=== PATIENT | female | born 1940 | race Caucasian/White ===

== ENCOUNTER 2018-01-08 09:48 | Observation (INO) ==
--- NOTE | 2018-01-08 10:15 | Emergency Department Note ---
Disposition Clinical Impression: COPD with acute exacerbation, Chest pain, rule out acute myocardial infarction Altered mental status, unspecified Qualifiers: Altered mental status type: unspecified Qualified Code(s): R41.82 - Altered mental status, unspecified Disposition: Admitted As Inpatient Condition: Fair Referrals: Gualberto Coto MD [Primary Care Provider] - Forms: ED Satisfaction Letter Time of Disposition: 11:49 General Adult HPI - General Chief complaint: ED Dizziness Stated complaint: Dizziness,Head injury,confusion x1wk Time Seen by Provider: 01/08/18 10:07 Source: patient, family Mode of arrival: wheelchair Limitations: altered mental status Nursing Notes Reviewed: Yes Vital Signs Reviewed: Yes - History of Present Illness HPI Narrative: 77-year-old female is sent from her primary care provider, Dr. Coto's office, for evaluation of multiple complaints. The patient was noted to be dyspneic in the office and she complaint of altered mental status, headache, shortness of breath, and chest pain. During her office visit primary care provider, according to records from that visit, she was noted to have some facial asymmetry however this is not well appreciated upon her arrival here. The patient states a history of multiple syncopal episodes over the course of the past 1-2 weeks. Her spouse was in the room states that the patient is extremely altered and that this altered mental status has been gradually worsening over the past 1-2 weeks. She herself is a rather poor historian but she does describe substernal nonradiating chest pain. She complains of a nonproductive cough and some mild degree of nausea as well. Onset (ago): week(s) Location: head, chest Pain Scale: 8 Consistency: constant Improves with: nothing Worsens with: nothing Associated symptoms: Reports: confusion, chest pain, cough, headaches, nausea/ vomiting (Nausea without vomiting), shortness of breath, syncope. Denies: diaphoresis, fever/chills Treatments Prior to Arrival: none - Related Data Home Medications Medication Instructions Recorded Confirmed Acyclovir [Zovirax] 400 mg PO BID 03/15/16 08/22/16 Albuterol Sulfate [Proair Hfa] 2 puff IH Q4H PRN 03/15/16 08/22/16 Alendronate Sodium [Fosamax] 70 mg PO MO 03/15/16 08/22/16 Atorvastatin Calcium [Lipitor] 20 mg PO HS 03/15/16 08/22/16 Budesonide/Formoterol 160/4.5 2 puff IH BIDR 03/15/16 08/22/16 [Symbicort 160/4.5] Cholecalciferol (Vitamin D3) 1,000 unit PO DAILY 03/15/16 08/22/16 [Vitamin D3] FLUoxetine HCl [Prozac] 40 mg PO HS 03/15/16 08/22/16 Ferrous Sulfate [Iron] 325 mg PO MOWEFR 03/15/16 08/22/16 Furosemide [Lasix] 40 mg PO DAILY 03/15/16 08/22/16 Gabapentin [Neurontin] 600 mg PO HS 03/15/16 08/22/16 HYDROcodone/Acet 5/325 mg [[place] 1 tab PO BID PRN 03/15/16 08/22/16 5-325 mg] Ipratropium/Albuterol Neb [Duoneb] 3 ml IH QID PRN 03/15/16 08/22/16 Montelukast [Singulair] 10 mg PO DAILY 03/15/16 08/22/16 Omalizumab [XOLAIR (For Outpatient 150 mg IJ QMONTH 03/15/16 08/22/16 Infusion)] Omeprazole [PriLOSEC] 40 mg PO DAILY 03/15/16 08/22/16 Oxygen 3 - 4 l NS AD 03/15/16 08/22/16 Ranitidine HCl [Heartburn Relief] 150 mg PO BID 03/15/16 08/22/16 diazePAM [Valium] 10 mg PO HS PRN 03/15/16 08/22/16 Previous Rx's Medication Instructions Recorded OxyCODONE Immed Rel [Roxicodone 5 5 mg PO Q4HR PRN #30 tablet 08/23/16 MG] Allergies Allergy/AdvReac Type Severity Reaction Status Date / Time ibandronate sodium Allergy Hives Verified 01/08/18 11:44 [From [place]] latex Allergy Hives Verified 01/08/18 11:44 Penicillins Allergy Anaphylaxis Verified 01/08/18 11:44 Sulfa (Sulfonamide Allergy Anaphylaxis Verified 01/08/18 11:44 Antibiotics) Tetanus Vaccines and Toxoid Allergy Hives Verified 01/08/18 11:44 [Tetanus Vaccines & Toxoid] tiotropium Allergy Hives Verified 01/08/18 11:44 [From Spiriva with HandiHaler] codeine AdvReac Confusion Verified 01/08/18 11:44 estradiol AdvReac unknown Verified 01/08/18 11:44 per patient morphine AdvReac Confusion Verified 01/08/18 11:44 All systems ED: reviewed and negative except as stated. Constitutional: Denies: fever, chills, weakness, weight change Eyes: Denies: eye pain, eye discharge, vision change ENT ED: Denies: ear pain, throat pain, dental pain, hearing loss, epistaxis, congestion, dysphagia Cardiovascular: Reports: as per HPI, chest pain, dyspnea on exertion, syncope. Denies: palpitations, edema Respiratory: Reports: as per HPI, cough, dyspnea, wheezes. Denies: hemoptysis, stridor, sputum production Gastrointestinal: Denies: abdominal pain, nausea, vomiting, diarrhea, constipation, hematemesis, melena, hematochezia Genitourinary: Denies: dysuria, frequency, hematuria, discharge Musculoskeletal: Denies: back pain, neck pain, arthralgia, myalgia Integumentary: Denies: rash, abrasion, lesions Neurological: Reports: as per HPI, headache. Denies: weakness, numbness, paresthesias, confusion, abnormal gait, vertigo Psychiatric: Denies: anxiety, depression, suicidal thoughts, homicidal thoughts , auditory hallucinations, visual hallucinations Endocrine: Denies: fatigue Hematological/Lymphatic: Denies: easy bleeding, easy bruising Allergic/Immunologic: Denies: facial swelling, urticaria Past Medical History - Past Medical History Attestation: Yes The following information was validated with the patient. Source: patient, obtained from family, nursing notes reviewed Medical history: Reports: arthritis, asthma, cancer, COPD, GERD, seizures Surgical history: Reports: appendectomy, cholecystectomy, colectomy, herniorrhaphy, hysterectomy, orthopedic, other, splenectomy, HAMMAD/BSO Psychiatric history: Reports: no psych history - Social History Smoking Status: Former smoker Smokeless Tobacco Status: No Alcohol use: Reports: none Drug use: Reports: none Physical Exam - General Limitations: no limitations General appearance: alert - Head Head exam: atraumatic, normocephalic, normal inspection - Expanded Head Exam Head exam physicial: Absent: laceration, abrasion, contusion, hematoma, raccoon eyes, Leblanc's sign - Eye Eye exam: Present: EOMI. Absent: PERRL (Right pupil appears fixed. Left pupil is sluggish. 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 Absent: tenderness - Chest Chest inspection: Present: normal inspection, symmetric chest wall rise - Respiratory Respiratory exam: Present: respiratory distress (Mild dyspnea noted), wheezes ( Audible expiratory wheezes). Absent: normal lung sounds bilaterally, stridor, accessory muscle use, prolonged expiratory phase - Cardiovascular Cardiovascular exam: Present: regular rate, tachycardia, normal heart sounds - Abdominal Exam Abdominal exam: Present: soft, Non-Tender, normal bowel sounds - Extremities Exam Extremities exam: Present: normal inspection, full ROM. Absent: tenderness, pedal edema - Back Exam Back exam: Present: normal inspection, full ROM. Absent: tenderness - Neurological Exam Neurological exam: Present: alert, oriented X3 (Oriented to person, place, and time) - Expanded Neurological Exam Patient oriented to: Present: person, place, time Cranial nerves: EOM function (II, III, IV, ): Normal, facial palsy (VII): Normal Motor strength - LUE: 5/5 Motor strength - RUE: 5/5 Motor strength - RLE: 5/5 Coma Scale Eye Opening: Spontaneous Coma Scale Motor Response: Obeys Commands Coma Scale Verbal Response: Oriented Coma Scale Total: 15 - Psychiatric Psychiatric exam: Present: normal affect, normal mood - Skin Skin exam: Present: warm, dry, intact, normal color. Absent: rash Course Course Narrative: I discussed this patient's case with Dr. Candelario. He agrees that the patient is outside any window for a stroke alert, as symptoms have been ongoing the gradually worsening for the past 1-2 weeks according to the patient's spouse. 1145: I discussed this patient's case with Dr. Sánchez, hospitalist on-call who has accepted the patient for admission to the hospitalist care for further evaluation and management. We will start IV azithromycin for acute exacerbation of COPD. Vital Signs Temperature 98.0 F 01/08/18 09:50 Pulse Rate 67 01/08/18 09:50 Respiratory Rate 24 01/08/18 09:50 Blood Pressure 145/70 01/08/18 09:50 O2 Sat by Pulse Oximetry 99 01/08/18 09:50 Temperature 98.0 F 01/08/18 10:16 Pulse Rate 67 01/08/18 10:16 Respiratory Rate 24 01/08/18 10:16 Blood Pressure 145/70 01/08/18 10:16 O2 Sat by Pulse Oximetry 100 01/08/18 10:20 Oxygen Delivery Oxygen Delivery Nasal Cannula Medical Decision Making - Medical Records Medical records reviewed: Yes I reviewed the patient's medical records. - Lab Data Lab results reviewed: Yes I reviewed the patient's lab results. Lab results narrative: Laboratory Last Values WBC 11.8 K/mcL (4.3-11.1) H 01/08/18 10:18 RBC 3.93 M/mcL (3.82-4.97) 01/08/18 10:18 Hgb 12.5 g/dL (11.5-15.4) 01/08/18 10:18 Hct 37.6 % (35.3-44.9) 01/08/18 10:18 MCV 95.7 fL (83.0-100.0) 01/08/18 10:18 MCH 31.8 pg (28.0-33.3) 01/08/18 10:18 MCHC 33.2 g/dL (31.6-35.5) 01/08/18 10:18 RDW 14.8 % (11.5-14.5) H 01/08/18 10:18 Plt Count 310 K/mcL (140-400) 01/08/18 10:18 MPV 9.1 fL (9.4-12.4) L 01/08/18 10:18 Immature Gran % 0.2 % (0-4) 01/08/18 10:18 Seg Neutrophils % 49.2 % 01/08/18 10:18 Lymphocytes % 39.2 % 01/08/18 10:18 Monocytes % 10.2 % 01/08/18 10:18 Eosinophils % 0.8 % 01/08/18 10:18 Basophils % 0.4 % 01/08/18 10:18 Neutrophils # 5.8 K/mcL (1.6-8.9) 01/08/18 10:18 Lymphocytes # 4.6 K/mcL (0.6-4.6) 01/08/18 10:18 Monocytes # 1.2 K/mcL (0.0-1.3) 01/08/18 10:18 Eosinophils # 0.1 K/mcL (0.0-0.6) 01/08/18 10:18 Basophils # 0.1 K/mcL (0.0-0.2) 01/08/18 10:18 PT 9.1 Seconds (9.4-12.1) L 01/08/18 10:18 INR 0.9 01/08/18 10:18 APTT 28.0 Seconds (26.0-36.0) 01/08/18 10:18 Sodium 135 mEq/L (136-145) L 01/08/18 10:18 Potassium 3.6 mEq/L (3.5-5.1) 01/08/18 10:18 Chloride 92 mEq/L (98-107) L 01/08/18 10:18 Carbon Dioxide 35 mEq/L (23-29) H 01/08/18 10:18 BUN 21 mg/dL (8-23) 01/08/18 10:18 Creatinine 1.01 mg/dL (0.60-1.20) 01/08/18 10:18 Est GFR ( Amer) > 60 (> 60) 01/08/18 10:18 Est GFR (Non-Af Amer) 53 (> 60) L 01/08/18 10:18 BUN/Creatinine Ratio 21 (6-26) 01/08/18 10:18 Glucose 89 mg/dL (70-105) 01/08/18 10:18 Calculated Osmolality 282 (280-300) 01/08/18 10:18 Lactic Acid 0.7 mmol/L (0.5-2.2) 01/08/18 10:18 Calcium 9.6 mg/dL (8.6-10.3) 01/08/18 10:18 Troponin I < 0.03 ng/mL (< 0.04) 01/08/18 10:18 B-Natriuretic Peptide 97 pg/mL (Less than 100) 01/08/18 10:18 Urine Color Yellow (Yellow) 01/08/18 11:09 Urine Clarity Clear (Clear) 01/08/18 11:09 Urine pH 7.0 pH Units (5.0-8.0) 01/08/18 11:09 Ur Specific Tow 1.015 (1.010-1.025) 01/08/18 11:09 Urine Protein Negative mg/dL (Neg-Trace) 01/08/18 11:09 Urine Glucose (UA) Normal mg/dL (Normal) 01/08/18 11:09 Urine Ketones Negative mg/dL (Negative) 01/08/18 11:09 Urine Blood Negative (Negative) 01/08/18 11:09 Urine Nitrite Negative (Negative) 01/08/18 11:09 Urine Bilirubin Negative (Negative) 01/08/18 11:09 Urine Urobilinogen Normal mg/dL (Normal) 01/08/18 11:09 Ur Leukocyte Esterase Moderate (Negative) H 01/08/18 11:09 Urine Microscopic RBC 0-3 per hpf (0-3) 01/08/18 11:09 Urine Microscopic WBC 3-5 per hpf (0-3) H 01/08/18 11:09 Ur Squamous Epith Cells Moderate per lpf (None-Few) H 01/08/18 11:09 Urine Bacteria None Seen per hpf (None-Few) 01/08/18 11:09 Hyaline Casts None Seen per lpf (None-Few) 01/08/18 11:09 Ur Culture Indicated? YES (NO) A 01/08/18 11:09 Result diagrams: 01/08/18 10:18 01/08/18 10:18 Lab Results 01/08/18 01/08/18 01/08/18 Range/Units 10:18 10:18 10:18 WBC (4.3-11.1) K/mcL RBC (3.82-4.97) M/mcL Hgb (11.5-15.4) g/dL Hct (35.3-44.9) % MCV (83.0-100.0) fL MCH (28.0-33.3) pg MCHC (31.6-35.5) g/dL RDW (11.5-14.5) % Plt Count (140-400) K/mcL MPV (9.4-12.4) fL Immature Gran % (0-4) % Seg Neutrophils % % Lymphocytes % % Monocytes % % Eosinophils % % Basophils % % Neutrophils # (1.6-8.9) K/mcL Lymphocytes # (0.6-4.6) K/mcL Monocytes # (0.0-1.3) K/mcL Eosinophils # (0.0-0.6) K/mcL Basophils # (0.0-0.2) K/mcL PT 9.1 L (9.4-12.1) Seconds INR 0.9 APTT 28.0 (26.0-36.0) Seconds Sodium (136-145) mEq/L Potassium (3.5-5.1) mEq/L Chloride (98-107) mEq/L Carbon Dioxide (23-29) mEq/L BUN (8-23) mg/dL Creatinine (0.60-1.20) mg/dL Est GFR ( Amer) (> 60) Est GFR (Non-Af Amer) (> 60) BUN/Creatinine Ratio (6-26) Glucose (70-105) mg/dL Calculated Osmolality (280-300) Lactic Acid 0.7 (0.5-2.2) mmol/L Calcium (8.6-10.3) mg/dL Troponin I (< 0.04) ng/mL B-Natriuretic Peptide 97 (Less than 100) pg/mL Urine Color (Yellow) Urine Clarity (Clear) Urine pH (5.0-8.0) pH Units Ur Specific Tow (1.010-1.025) Urine Protein (Neg-Trace) mg/dL Urine Glucose (UA) (Normal) mg/dL Urine Ketones (Negative) mg/dL Urine Blood (Negative) Urine Nitrite (Negative) Urine Bilirubin (Negative) Urine Urobilinogen (Normal) mg/dL Ur Leukocyte Esterase (Negative) Urine Microscopic RBC (0-3) per hpf Urine Microscopic WBC (0-3) per hpf Ur Squamous Epith Cells (None-Few) per lpf Urine Bacteria (None-Few) per hpf Hyaline Casts (None-Few) per lpf Ur Culture Indicated? (NO) 01/08/18 01/08/18 01/08/18 Range/Units 10:18 10:18 11:09 WBC 11.8 H (4.3-11.1) K/mcL RBC 3.93 (3.82-4.97) M/mcL Hgb 12.5 (11.5-15.4) g/dL Hct 37.6 (35.3-44.9) % MCV 95.7 (83.0-100.0) fL MCH 31.8 (28.0-33.3) pg MCHC 33.2 (31.6-35.5) g/dL RDW 14.8 H (11.5-14.5) % Plt Count 310 (140-400) K/mcL MPV 9.1 L (9.4-12.4) fL Immature Gran % 0.2 (0-4) % Seg Neutrophils % 49.2 % Lymphocytes % 39.2 % Monocytes % 10.2 % Eosinophils % 0.8 % Basophils % 0.4 % Neutrophils # 5.8 (1.6-8.9) K/mcL Lymphocytes # 4.6 (0.6-4.6) K/mcL Monocytes # 1.2 (0.0-1.3) K/mcL Eosinophils # 0.1 (0.0-0.6) K/mcL Basophils # 0.1 (0.0-0.2) K/mcL PT (9.4-12.1) Seconds INR APTT (26.0-36.0) Seconds Sodium 135 L (136-145) mEq/L Potassium 3.6 (3.5-5.1) mEq/L Chloride 92 L (98-107) mEq/L Carbon Dioxide 35 H (23-29) mEq/L BUN 21 (8-23) mg/dL Creatinine 1.01 (0.60-1.20) mg/dL Est GFR ( Amer) > 60 (> 60) Est GFR (Non-Af Amer) 53 L (> 60) BUN/Creatinine Ratio 21 (6-26) Glucose 89 (70-105) mg/dL Calculated Osmolality 282 (280-300) Lactic Acid (0.5-2.2) mmol/L Calcium 9.6 (8.6-10.3) mg/dL Troponin I < 0.03 (< 0.04) ng/mL B-Natriuretic Peptide (Less than 100) pg/mL Urine Color Yellow (Yellow) Urine Clarity Clear (Clear) Urine pH 7.0 (5.0-8.0) pH Units Ur Specific Tow 1.015 (1.010-1.025) Urine Protein Negative (Neg-Trace) mg/dL Urine Glucose (UA) Normal (Normal) mg/dL Urine Ketones Negative (Negative) mg/dL Urine Blood Negative (Negative) Urine Nitrite Negative (Negative) Urine Bilirubin Negative (Negative) Urine Urobilinogen Normal (Normal) mg/dL Ur Leukocyte Esterase Moderate H (Negative) Urine Microscopic RBC 0-3 (0-3) per hpf Urine Microscopic WBC 3-5 H (0-3) per hpf Ur Squamous Epith Cells Moderate H (None-Few) per lpf Urine Bacteria None Seen (None-Few) per hpf Hyaline Casts None Seen (None-Few) per lpf Ur Culture Indicated? YES A (NO) - Radiology Data Radiology results reviewed: Yes I reviewed the patient's radiology results. Cervical Spine CT 01/08/18 10:08 IMPRESSION: No acute abnormality of the cervical spine. Multilevel degenerative changes and grade 1 spondylolisthesis likely relating to the degenerative changes, similar to prior exam 01/27/2015. Diffuse bone demineralization. D/ / 01/08/2018 11:07:05 Sonny Mendiola MD / Marjorie Maddox Interpreting Provider: Sonny Mendiola MD Chest X-Ray 01/08/18 10:08 IMPRESSION: No evidence for acute cardiopulmonary process. D/ / 01/08/2018 10:49:58 Sonny Mendiola MD / leslie Interpreting Provider: Sonny Mendiola MD Head CT 01/08/18 10:08 IMPRESSION: 1. No acute intracranial abnormality. 2. Mild global parenchymal volume loss. 3. Atherosclerosis. 4. Hyperdensity is now seen within the posterior chamber the right globe with a scleral band. Suggest correlation with prior ophthalmologic procedure/silicone injection. D/ / Roe Tello MD / Roe Tello MD Interpreting Provider: Roe Tello MD - EKG Data EKG #1 EKG attestation: Yes I reviewed and interpreted this EKG. EKG results narrative: EKG reviewed by Dr. Candelario as well. EKG shows a sinus rhythm at a rate of 66 bpm. IA interval 180, QRS duration 102, QT/QTc interval 415/49. No ectopy noted. No STEMI. No appreciable changes from an EKG dated from 06/27/16. NIH Stroke Scale - Level of Consciousness LOC: Alert - LOC Questions LOC Questions: Answers both correctly - LOC Commands LOC Commands: Performs both correctly - Best Gaze Best Gaze: Normal - Visual Visual: Bilateral hemianopia (blind) - Facial Palsy Facial Palsy: Normal - Motor Arms Motor Arm-Left: No drift for 10 seconds Motor Arm-Right: No drift for 10 seconds - Motor Legs Motor Leg-Left: No drift for 5 seconds Motor Leg-Right: Drift, does NOT hit bed - Limb Ataxia Limb Ataxia: Absent of affected limb too weak to perform exam - Sensory Sensory: Normal - Best Language Best Language: No aphasia - Dysarthria Dysarthria: Mild, slurs some words - Extinction and Inattention Extinction and Inattention: Normal - NIHSS Total Score NIHSS Total Score: 5
[2018-01-08 10:30] LABS: Basophils # 0.1 K/mcL (0.0-0.2); Basophils % 0.4 %; Eosinophils # 0.1 K/mcL (0.0-0.6); Eosinophils % 0.8 %; Hematocrit 37.6 % (35.3-44.9); Hemoglobin 12.5 g/dL (11.5-15.4); Immature Granulocytes % 0.2 % (0-4); Lymphocytes # 4.6 K/mcL (0.6-4.6); Lymphocytes % 39.2 %; Mean Corpuscular HGB Conc 33.2 g/dL (31.6-35.5); Mean Corpuscular Hemoglobin 31.8 pg (28.0-33.3); Mean Corpuscular Volume 95.7 fL (83.0-100.0); Mean Platelet Volume 9.1 fL (9.4-12.4); Monocytes # 1.2 K/mcL (0.0-1.3); Monocytes % 10.2 %; Neutrophils # 5.8 K/mcL (1.6-8.9); Platelet Count 310 K/mcL (140-400); Red Blood Count 3.93 M/mcL (3.82-4.97); Red Cell Distribution Width 14.8 % (11.5-14.5); Segmented Neutrophils % 49.2 %
[2018-01-08 10:37] LABS: INR 0.9; Prothrombin Time 9.1 Seconds (9.4-12.1)
[2018-01-08 10:57] LABS: Troponin I < 0.03 ng/mL (< 0.04)
[2018-01-08 10:58] LABS: BUN/Creatinine Ratio 21 (6-26); Blood Urea Nitrogen 21 mg/dL (8-23); Calcium 9.6 mg/dL (8.6-10.3); Carbon Dioxide 35 mEq/L (23-29); Chloride 92 mEq/L (98-107); Glucose 89 mg/dL (70-105); Osmolality,Calculated 282 (280-300); Potassium 3.6 mEq/L (3.5-5.1); Sodium 135 mEq/L (136-145); eGFR For African Americans > 60 (> 60); eGFR For Non-African Americans 53 (> 60)
[2018-01-08] MEDS ORDERED: methylPREDNISolone 125 MG/2 ML VIAL IVP STA (11:14)
[2018-01-08] MEDS ORDERED: Aspirin 81 MG TAB.CHEW PO ONE (11:14)
[2018-01-08] MEDS ORDERED: Albuterol 2.5 MG/3 ML NEBULIZER IH ONE (11:15)
[2018-01-08 11:20] LABS: Bilirubin,Urine Negative (Negative); Blood,Urine Negative (Negative); Clarity,Urine Clear (Clear); Color,Urine Yellow (Yellow); Glucose,Urine (UA) Normal (Normal); Ketones,Urine Negative (Negative); Leukocyte Esterase,Urine Moderate (Negative); Nitrite,Urine Negative (Negative); Protein,Urine Negative (Neg-Trace); Specific Gravity,Urine 1.015 (1.010-1.025); Urobilinogen,Urine Normal (Normal)
[2018-01-08 11:23] LABS: Bacteria,Urine None Seen per hpf (None-Few); Hyaline Casts,Urine None Seen per lpf (None-Few); RBC,Urine 0-3 per hpf (0-3); Squamous Epithelial Cell,Urine Moderate per lpf (None-Few)
[2018-01-08] MEDS ORDERED: Azithromycin 500 MG in D5% in Water 250 ML IVPB ONE (11:47)
--- NOTE | 2018-01-08 12:30 | Emergency Department Note ---
Disposition Clinical Impression: COPD with acute exacerbation, Chest pain, rule out acute myocardial infarction Altered mental status, unspecified Qualifiers: Altered mental status type: unspecified Qualified Code(s): R41.82 - Altered mental status, unspecified Disposition: Admitted As Inpatient Condition: Fair General Adult HPI - General Chief complaint: ED Dizziness Stated complaint: Dizziness,Head injury,confusion x1wk Time Seen by Provider: 01/08/18 10:07 Source: patient, family Mode of arrival: wheelchair Limitations: no limitations - History of Present Illness Location: head, chest Pain Scale: 8 Improves with: nothing Worsens with: nothing Associated symptoms: Reports: confusion, chest pain, cough, headaches, nausea/ vomiting (Nausea without vomiting), shortness of breath, syncope. Denies: diaphoresis, fever/chills Treatments Prior to Arrival: none - Related Data Home Medications Medication Instructions Recorded Confirmed Acyclovir [Zovirax] 400 mg PO BID 03/15/16 08/22/16 Albuterol Sulfate [Proair Hfa] 2 puff IH Q4H PRN 03/15/16 08/22/16 Alendronate Sodium [Fosamax] 70 mg PO MO 03/15/16 08/22/16 Atorvastatin Calcium [Lipitor] 20 mg PO HS 03/15/16 08/22/16 Budesonide/Formoterol 160/4.5 2 puff IH BIDR 03/15/16 08/22/16 [Symbicort 160/4.5] Cholecalciferol (Vitamin D3) 1,000 unit PO DAILY 03/15/16 08/22/16 [Vitamin D3] FLUoxetine HCl [Prozac] 40 mg PO HS 03/15/16 08/22/16 Ferrous Sulfate [Iron] 325 mg PO MOWEFR 03/15/16 08/22/16 Furosemide [Lasix] 40 mg PO DAILY 03/15/16 08/22/16 Gabapentin [Neurontin] 600 mg PO HS 03/15/16 08/22/16 HYDROcodone/Acet 5/325 mg [Horatio 1 tab PO BID PRN 03/15/16 08/22/16 5-325 mg] Ipratropium/Albuterol Neb [Duoneb] 3 ml IH QID PRN 03/15/16 08/22/16 Montelukast [Singulair] 10 mg PO DAILY 03/15/16 08/22/16 Omalizumab [XOLAIR (For Outpatient 150 mg IJ QMONTH 03/15/16 08/22/16 Infusion)] Omeprazole [PriLOSEC] 40 mg PO DAILY 03/15/16 08/22/16 Oxygen 3 - 4 l NS AD 03/15/16 08/22/16 Ranitidine HCl [Heartburn Relief] 150 mg PO BID 03/15/16 08/22/16 diazePAM [Valium] 10 mg PO HS PRN 03/15/16 08/22/16 Previous Rx's Medication Instructions Recorded OxyCODONE Immed Rel [Roxicodone 5 5 mg PO Q4HR PRN #30 tablet 08/23/16 MG] Allergies Allergy/AdvReac Type Severity Reaction Status Date / Time ibandronate sodium Allergy Hives Verified 01/08/18 11:44 [From Boniva] latex Allergy Hives Verified 01/08/18 11:44 Penicillins Allergy Anaphylaxis Verified 01/08/18 11:44 Sulfa (Sulfonamide Allergy Anaphylaxis Verified 01/08/18 11:44 Antibiotics) Tetanus Vaccines and Toxoid Allergy Hives Verified 01/08/18 11:44 [Tetanus Vaccines & Toxoid] tiotropium Allergy Hives Verified 01/08/18 11:44 [From Spiriva with HandiHaler] codeine AdvReac Confusion Verified 01/08/18 11:44 estradiol AdvReac unknown Verified 01/08/18 11:44 per patient morphine AdvReac Confusion Verified 01/08/18 11:44 Constitutional: Denies: fever, chills, weakness, weight change Eyes: Denies: eye pain, eye discharge, vision change ENT ED: Denies: ear pain, throat pain, dental pain, hearing loss, epistaxis, congestion, dysphagia Cardiovascular: Reports: as per HPI, chest pain, dyspnea on exertion, syncope. Denies: palpitations, edema Respiratory: Reports: as per HPI, cough, dyspnea, wheezes. Denies: hemoptysis, stridor, sputum production Gastrointestinal: Denies: abdominal pain, nausea, vomiting, diarrhea, constipation, hematemesis, melena, hematochezia Genitourinary: Denies: dysuria, frequency, hematuria, discharge Musculoskeletal: Denies: back pain, neck pain, arthralgia, myalgia Integumentary: Denies: rash, abrasion, lesions Neurological: Reports: as per HPI, headache. Denies: weakness, numbness, paresthesias, confusion, abnormal gait, vertigo Psychiatric: Denies: anxiety, depression, suicidal thoughts, homicidal thoughts , auditory hallucinations, visual hallucinations Endocrine: Denies: fatigue Hematological/Lymphatic: Denies: easy bleeding, easy bruising Allergic/Immunologic: Denies: facial swelling, urticaria Past Medical History - Past Medical History Medical history: Reports: arthritis, asthma, cancer, COPD, GERD, seizures Surgical history: Reports: appendectomy, cholecystectomy, colectomy, herniorrhaphy, hysterectomy, orthopedic, other, splenectomy, HAMMAD/BSO Psychiatric history: Reports: no psych history - Social History Smoking Status: Former smoker Smokeless Tobacco Status: No Alcohol use: Reports: none Drug use: Reports: none Physical Exam - General Limitations: no limitations General appearance: alert Course - Reevaluation(s) Reevaluation #1: Attestation note I examined this patient and my medical decision-making was reviewed with the emergency medicine resident. I agree with the documented findings, disposition and treatment plan as described except to the extent set forth below. Patient seen with JESSIKA Alicea, Please see a copy of his note for details of the H&P, ED evaluation, management and disposition. I have independently evaluated the patient and confirmed appropriate portions of the history and physical exam. Briefly: 37-year-old female comes in with increasing confusion after fall. Patient had CT which was negative screening labs which were negative patient will be admitted to the hospitalist for further evaluation. Patient be admitted for chest pain rule out ACS and altered mental status Time: 12:28 Vital Signs Temperature 98.0 F 01/08/18 09:50 Pulse Rate 67 01/08/18 09:50 Respiratory Rate 24 01/08/18 09:50 Blood Pressure 145/70 01/08/18 09:50 O2 Sat by Pulse Oximetry 99 01/08/18 09:50 Temperature 98.0 F 01/08/18 10:16 Pulse Rate 71 01/08/18 11:50 Respiratory Rate 18 01/08/18 11:50 Blood Pressure 135/91 01/08/18 11:50 O2 Sat by Pulse Oximetry 100 01/08/18 11:50 Oxygen Delivery Oxygen Delivery Nasal Cannula Medical Decision Making - Lab Data Result diagrams: 01/08/18 10:18 01/08/18 10:18 Lab Results 01/08/18 01/08/18 01/08/18 Range/Units 10:18 10:18 10:18 WBC (4.3-11.1) K/mcL RBC (3.82-4.97) M/mcL Hgb (11.5-15.4) g/dL Hct (35.3-44.9) % MCV (83.0-100.0) fL MCH (28.0-33.3) pg MCHC (31.6-35.5) g/dL RDW (11.5-14.5) % Plt Count (140-400) K/mcL MPV (9.4-12.4) fL Immature Gran % (0-4) % Seg Neutrophils % % Lymphocytes % % Monocytes % % Eosinophils % % Basophils % % Neutrophils # (1.6-8.9) K/mcL Lymphocytes # (0.6-4.6) K/mcL Monocytes # (0.0-1.3) K/mcL Eosinophils # (0.0-0.6) K/mcL Basophils # (0.0-0.2) K/mcL PT 9.1 L (9.4-12.1) Seconds INR 0.9 APTT 28.0 (26.0-36.0) Seconds Sodium (136-145) mEq/L Potassium (3.5-5.1) mEq/L Chloride (98-107) mEq/L Carbon Dioxide (23-29) mEq/L BUN (8-23) mg/dL Creatinine (0.60-1.20) mg/dL Est GFR ( Amer) (> 60) Est GFR (Non-Af Amer) (> 60) BUN/Creatinine Ratio (6-26) Glucose (70-105) mg/dL Calculated Osmolality (280-300) Lactic Acid 0.7 (0.5-2.2) mmol/L Calcium (8.6-10.3) mg/dL Troponin I (< 0.04) ng/mL B-Natriuretic Peptide 97 (Less than 100) pg/mL Urine Color (Yellow) Urine Clarity (Clear) Urine pH (5.0-8.0) pH Units Ur Specific [place] (1.010-1.025) Urine Protein (Neg-Trace) mg/dL Urine Glucose (UA) (Normal) mg/dL Urine Ketones (Negative) mg/dL Urine Blood (Negative) Urine Nitrite (Negative) Urine Bilirubin (Negative) Urine Urobilinogen (Normal) mg/dL Ur Leukocyte Esterase (Negative) Urine Microscopic RBC (0-3) per hpf Urine Microscopic WBC (0-3) per hpf Ur Squamous Epith Cells (None-Few) per lpf Urine Bacteria (None-Few) per hpf Hyaline Casts (None-Few) per lpf Ur Culture Indicated? (NO) 01/08/18 01/08/18 01/08/18 Range/Units 10:18 10:18 11:09 WBC 11.8 H (4.3-11.1) K/mcL RBC 3.93 (3.82-4.97) M/mcL Hgb 12.5 (11.5-15.4) g/dL Hct 37.6 (35.3-44.9) % MCV 95.7 (83.0-100.0) fL MCH 31.8 (28.0-33.3) pg MCHC 33.2 (31.6-35.5) g/dL RDW 14.8 H (11.5-14.5) % Plt Count 310 (140-400) K/mcL MPV 9.1 L (9.4-12.4) fL Immature Gran % 0.2 (0-4) % Seg Neutrophils % 49.2 % Lymphocytes % 39.2 % Monocytes % 10.2 % Eosinophils % 0.8 % Basophils % 0.4 % Neutrophils # 5.8 (1.6-8.9) K/mcL Lymphocytes # 4.6 (0.6-4.6) K/mcL Monocytes # 1.2 (0.0-1.3) K/mcL Eosinophils # 0.1 (0.0-0.6) K/mcL Basophils # 0.1 (0.0-0.2) K/mcL PT (9.4-12.1) Seconds INR APTT (26.0-36.0) Seconds Sodium 135 L (136-145) mEq/L Potassium 3.6 (3.5-5.1) mEq/L Chloride 92 L (98-107) mEq/L Carbon Dioxide 35 H (23-29) mEq/L BUN 21 (8-23) mg/dL Creatinine 1.01 (0.60-1.20) mg/dL Est GFR ( Amer) > 60 (> 60) Est GFR (Non-Af Amer) 53 L (> 60) BUN/Creatinine Ratio 21 (6-26) Glucose 89 (70-105) mg/dL Calculated Osmolality 282 (280-300) Lactic Acid (0.5-2.2) mmol/L Calcium 9.6 (8.6-10.3) mg/dL Troponin I < 0.03 (< 0.04) ng/mL B-Natriuretic Peptide (Less than 100) pg/mL Urine Color Yellow (Yellow) Urine Clarity Clear (Clear) Urine pH 7.0 (5.0-8.0) pH Units Ur Specific [place] 1.015 (1.010-1.025) Urine Protein Negative (Neg-Trace) mg/dL Urine Glucose (UA) Normal (Normal) mg/dL Urine Ketones Negative (Negative) mg/dL Urine Blood Negative (Negative) Urine Nitrite Negative (Negative) Urine Bilirubin Negative (Negative) Urine Urobilinogen Normal (Normal) mg/dL Ur Leukocyte Esterase Moderate H (Negative) Urine Microscopic RBC 0-3 (0-3) per hpf Urine Microscopic WBC 3-5 H (0-3) per hpf Ur Squamous Epith Cells Moderate H (None-Few) per lpf Urine Bacteria None Seen (None-Few) per hpf Hyaline Casts None Seen (None-Few) per lpf Ur Culture Indicated? YES A (NO)
[2018-01-08] MEDS ORDERED: Albuterol 2.5 MG/3 ML NEBULIZER IH PRN (12:58)
[2018-01-08] MEDS ORDERED: Acetaminophen 325 MG TABLET PO PRN (12:58)
[2018-01-08] MEDS ORDERED: Naloxone 0.4 MG/ML INJ IVP PRN (12:58)
[2018-01-08] MEDS ORDERED: *HR* EPINEPHrine 0.3 MG/0.3 ML (PEN) IM PRN (13:03)
--- NOTE | 2018-01-08 13:12 | Internal Med History&Physical ---
Date of Encounter: 01/08/18 Time of Encounter: 12:20 Internal Medicine - H&P: HPI Chief complaint: AMS; syncope; dyspnea Admitted From: Emergency Dept Plans for Post Hospital Care: Home History of present illness: Ms. Kasper is a 77 year old female who presents with about a 3 week history of syncope, falls, weakness, dizzy spells, coughing, wheezing, and altered mental status. Patient saw her PCP today who referred her to ER. Patient was seen and assessed in the ER and admitted to the hospitalist service. I saw patient in the ER and discussed PECHANGA with patient and her who was present at the bedside. confirms that 3 weeks prior, she was normal and ambulating well without difficulty. She had no prior difficulty with confusion , disorientation, and/or weakness or syncope. However, over the previous 2-3 weeks, she has been falling, weak, dizzy, forgetful, and even hallucinating and delusional at times. She just weaned off prednisone yesterday after a prolonged taper for her COPD. She has had some occasional difficulty urinating but no cailin dysuria or urinary urgency. She has had no fevers, chills, or night sweats. She has been coughing and wheezing more than normal lately. She also has required increased oxygen use over the last few weeks. She normally only wears oxygen at night, but she has been wearing it 24/7 lately. She denies and her denies any focal numbness, weakness, or deficits. She has had generalized weakness, difficulty ambulating, and falling. Past Med Surg Social Fam HX - Past Medical History Attestation: Yes The following information was validated with the patient. Source: patient, old records reviewed, obtained from family Medical history: arthritis, asthma, cancer, COPD, GERD, seizures Additional medical history: Skin cancer Psychiatric history: no psych history - Past Surgical History Surgical History: appendectomy, cholecystectomy, colectomy, herniorrhaphy, hysterectomy, orthopedic, other, splenectomy, HAMMAD/BSO Additional surgical history: R-SHOULDER REPLACED, L-SHOULDER BALL & LIGAMENTS, 1 /2 STOMACH & INTESTINES, REMOVED, HERNIA REPAIR, Bladder tuck - Social History Smoking Status: Former smoker Smokeless Tobacco Status: No Alcohol use: none Drug use: none Occupational status: retired Current living situation: Home, With Family Activity Level: Independent ambulation Recent Out of Country Travel Within the Last 8 Weeks: No - Family History Mother Living Status: Hx Family Cardiac Disorders: Yes Internal Medicine - H&P: Meds Acyclovir [Zovirax] 400 mg PO BID 03/15/16 [History] Albuterol Sulfate [Proair Hfa] 2 puff IH Q4H PRN 03/15/16 [History] Alendronate Sodium [Fosamax] 70 mg PO MO 03/15/16 [History] Atorvastatin Calcium [Lipitor] 20 mg PO HS 03/15/16 [History] Budesonide/Formoterol 160/4.5 [Symbicort 160/4.5] 2 puff IH BID 03/15/16 [ History] Cholecalciferol (Vitamin D3) [Vitamin D3] 1,000 unit PO DAILY 03/15/16 [History] FLUoxetine HCl [Prozac] 40 mg PO HS 03/15/16 [History] Ferrous Sulfate [Iron] 325 mg PO DAILY 03/15/16 [History] Furosemide [Lasix] 40 mg PO DAILY 03/15/16 [History] Gabapentin [Neurontin] 600 mg PO HS 03/15/16 [History] Ipratropium/Albuterol Neb [Duoneb] 3 ml IH QID PRN 03/15/16 [History] Montelukast [Singulair] 10 mg PO DAILY 03/15/16 [History] Omalizumab [XOLAIR (For Outpatient Infusion)] 150 mg IJ QMONTH 03/15/16 [History ] Omeprazole [PriLOSEC] 40 mg PO DAILY 03/15/16 [History] Oxygen 3 - 4 l NS AD 03/15/16 [History] Ranitidine HCl [Heartburn Relief] 150 mg PO BID 03/15/16 [History] Acetaminophen [Acetaminophen ER] 650 mg PO BID PRN 01/08/18 [History] EPINEPHrine [Epipen] 0.3 mg IJ ONCE PRN 01/08/18 [History] Losartan/HCTZ [Hyzaar 50-12.5 Tablet] 1 tab PO DAILY 01/08/18 [History] Multivit-Min/Iron/Folic/Lutein [Centrum Silver Women Tablet] 1 tab PO DAILY [History] traZODone [TraZODone] 50 mg PO HS 01/08/18 [History] 3 Allergy/AdvReac Type Severity Reaction Status Date / Time ibandronate sodium Allergy Hives Verified 01/08/18 12:31 [From Boniva] latex Allergy Hives Verified 01/08/18 12:31 Penicillins Allergy Anaphylaxis Verified 01/08/18 12:31 Sulfa (Sulfonamide Allergy Anaphylaxis Verified 01/08/18 12:31 Antibiotics) Tetanus Vaccines and Toxoid Allergy Hives Verified 01/08/18 12:31 [Tetanus Vaccines & Toxoid] tiotropium Allergy Hives Verified 01/08/18 12:31 [From Spiriva with HandiHaler] codeine AdvReac Confusion Verified 01/08/18 12:31 estradiol AdvReac unknown Verified 01/08/18 12:31 per patient morphine AdvReac Confusion Verified 01/08/18 12:31 - Constitutional Constitutional: fatigue, falls, malaise, weakness, no chills, no fever(s) - EENT Eyes: loss of vision (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 ), no blurry vision, no change in vision Ears: no ear pain Nose, mouth and throat: no nasal congestion, no sore throat - Cardiovascular Cardiovascular ROS IM: dyspnea, dyspnea on exertion, lightheadedness, syncope, no chest pain, no edema, no irregular heart rhythm - Respiratory Respiratory: cough, dyspnea, dyspnea on exertion, wheezing, chest congestion, no hemoptysis, no excessive phlegm production, no change in phlegm color - Gastrointestinal Gastrointestinal: no abdominal pain, no diarrhea, no hematemesis, no hematochezia, no melena, no nausea, no vomiting - Genitourinary Genitourinary: dysuria, no flank pain, no hematuria, no urinary frequency, no urinary urgency - Musculoskeletal Musculoskeletal ROS IM: no back pain - Integumentary Integumentary IM: no rash, no jaundice - Neurological Neurological ROS: behavioral changes, confusion, dizziness, frequent falls, tremor(s), no abnormal speech, no convulsions, no focal weakness, no headache(s) , no numbness, no vertigo - Psychiatric Psychiatric: anxiety, no depression - Endocrine Endocrine IM: no polydipsia, no polyuria - Allergic/Immunologic Allergic/Immunologic: wheezing, no GI upset with certain foods - Constitutional Vitals: Temp Pulse Resp BP Pulse Ox 98.0 F 71 18 135/91 100 01/08/18 10:16 01/08/18 11:50 01/08/18 11:50 01/08/18 11:50 01/08/18 11:50 General appearance: Present: cooperative, A&O X 3, pleasant, answers questions appropriately Exam: patient a little anxious; A&O x 3; acknowledges episodes of confusion and is distraught over them - Head Head exam: Present: atraumatic, normal inspection - Eye Eye exam: Present: EOMI. Absent: scleral icterus Pupils: Present: normal accommodation Additional comments: blind right eye - ENT ENT exam: Present: mucous membranes dry, normal exam, normal oropharynx - Neck Neck exam general surgery: Present: full ROM, supple. Absent: lymphadenopathy, tenderness, nuchal rigidity, thyromegaly - Expanded Neck Exam Neck exam: Absent: carotid bruit - Respiratory Respiratory exam: Present: prolonged expiratory phase, rhonchi, wheezes. Absent : accessory muscle use, chest wall tenderness, rales, respiratory distress - Cardiovascular Cardiovascular exam: Present: RRR, +S1, +S2. Absent: diastolic murmur, systolic murmur - GI/Abdominal GI/Abdominal exam: Present: soft. Absent: guarding, hepatomegaly, mass, rebound , splenomegaly, tenderness - Extremities Exam Extremities exam: Present: full ROM, normal capillary refill, warm, radial pulses palpable and symmetrical. Absent: calf tenderness, pedal edema, tenderness - Back Exam Back exam: Absent: CVA tenderness (L), CVA tenderness (R) - Neurological Exam Neurological exam: Present: alert, CN II-XII intact, oriented X3, no focal deficits Additional comments: tremors in both hands with intentional movements - Psychiatric Psychiatric exam: Present: anxious. Absent: depressed, homicidal ideation, suicidal ideation - Skin Skin exam: Present: dry, intact, warm Internal Med - H&P Results - Labs CBC & Chem 7: 01/08/18 10:18 01/08/18 10:18 - EKG Data -: EKG Interpreted by Myself - EKG Data Prior EKG available for review: yes EKG comments: 01/08/18 13:18 NSR; no acute ST-T changes - Diagnostic Studies Chest x-ray Status: image reviewed by me (negative) - Assessment and plan (1) Encephalopathy acute Current Visit: Yes Status: Acute Assessment and plan: 1. Possibly due to UTI vs abrupt steroid withdrawal (adrenal insufficiency). 2. Patient and deny any medication changes lately. 3. Will culture urine, treat for suspected UTI, and continue Solumedrol for AECOPD. 4. Will monitor glucose for possible hypoglycemia. 5. Will minimize sedating/mind-altering medications. 6. Follow clinically. (2) Syncope Current Visit: Yes Status: Acute Assessment and plan: 1. As above, will monitor glucose. 2. Will place on telemetry and trend troponins and EKg's. 3. Will order ECHO and Carotid Dopplers. 4. Given abrupt changes, will order MRI brain to assess for any neurologic process. Qualifiers: Syncope type: unspecified Qualified Code(s): R55 - Syncope and collapse (3) UTI (urinary tract infection) Current Visit: Yes Status: Suspected Assessment and plan: 1. Will culture urine and treat with IV antibiotics. 2. Follow clinically. Qualifiers: Urinary tract infection type: acute cystitis Hematuria presence: without hematuria Qualified Code(s): N30.00 - Acute cystitis without hematuria (4) COPD with acute exacerbation Current Visit: Yes Status: Acute Assessment and plan: 1. Will treat with IV steroids, scheduled and PRN aerosols, and IV Levaquin as above. 2. Follow clinically. 3. Recommend very slow steroid taper once clinically improved. (5) DVT prophylaxis Current Visit: Yes Status: Acute Assessment and plan: 1. Heparin SQ.
[2018-01-08] MEDS: 0.9 % Sodium Chloride 1,000 ML IVC SCH (14:33)
[2018-01-08] MEDS: Ipratropium/Albuterol Neb 3 ML IH SCH ×2 (15:46→20:11)
[2018-01-08] MEDS ORDERED: Famotidine 20 MG TABLET PO SCH (16:30)
--- NOTE | 2018-01-08 17:07 | Electrocardiograph Report ---
[facility] Test Date: 2018-01-08 Pat Name: Kate Kasper Department: 104 Room: 3B41 Gender: F Fig Washer: : 1940 Requested By: Ronny Alicea Order Number: [id number] Reading MD: Neil Curry Measurements Intervals [place] Rate: 66 P: 60 NV: 180 QRS: 26 QRSD: 102 T: 74 QT: 415 QTc: 429 Interpretive Statements SINUS RHYTHM NONSPECIFIC ST & T-WAVE ABNORMALITY Electronically Signed On 01-08-2018 17:06:24 EDT by Neil Curry
[2018-01-08] MEDS: methylPREDNISolone 125 MG/2 ML VIAL IVP SCH (18:06)
[2018-01-08] MEDS: *HR* Heparin 5,000 UNIT/ML VIAL SQ SCH (18:06)
[2018-01-08] MEDS: Budesonide/Formoterol 160/4.5 MDI IH SCH (20:12)
[2018-01-08] MEDS: FLUoxetine 20 MG CAPSULE PO SCH (20:35)
[2018-01-08] MEDS: Gabapentin 300 MG CAPSULE PO SCH (20:36)
[2018-01-08] MEDS: Acyclovir 200 MG CAPSULE PO SCH (20:37)
[2018-01-08] MEDS ORDERED: Levofloxacin 500 MG/100 ML 500 MG/100 ML BAG IVPB SCH (21:00)
[2018-01-09] MEDS: Ipratropium/Albuterol Neb 3 ML IH SCH ×7 (00:17→23:22)
[2018-01-09 05:45] LABS: Basophils % 0.1 %; Hematocrit 35.6 % (35.3-44.9); Hemoglobin 11.8 g/dL (11.5-15.4); Immature Granulocytes % 0.3 % (0-4); Lymphocytes # 1.8 K/mcL (0.6-4.6); Lymphocytes % 13.3 %; Mean Corpuscular HGB Conc 33.1 g/dL (31.6-35.5); Mean Corpuscular Hemoglobin 30.4 pg (28.0-33.3); Mean Corpuscular Volume 91.8 fL (83.0-100.0); Mean Platelet Volume 9.7 fL (9.4-12.4); Monocytes # 0.2 K/mcL (0.0-1.3); Monocytes % 1.5 %; Neutrophils # 11.2 K/mcL (1.6-8.9); Platelet Count 330 K/mcL (140-400); Red Blood Count 3.88 M/mcL (3.82-4.97); Red Cell Distribution Width 14.7 % (11.5-14.5); Segmented Neutrophils % 84.8 %
[2018-01-09 05:58] LABS: Alanine Aminotransferase 27 Units/L (7-52); Albumin 4.1 g/dL (3.5-5.7); Albumin/Globulin Ratio 1.6 (1.1-2.2); Alkaline Phosphatase 70 Units/L (34-104); Aspartate Amino Transferase 20 Units/L (13-39); BUN/Creatinine Ratio 24 (6-26); Bilirubin,Total 0.5 mg/dL (0.3-1.0); Blood Urea Nitrogen 20 mg/dL (8-23); Calcium 9.3 mg/dL (8.6-10.3); Carbon Dioxide 27 mEq/L (23-29); Chloride 92 mEq/L (98-107); Chol/HDL Ratio 1.9 (0-4.9); Cholesterol 219 mg/dL (< 200); Globulin 2.6 g/dL (2.4-3.5); Glucose 141 mg/dL (70-105); HDL Cholesterol 113 mg/dL (40-59); LDL Cholesterol,Calculated 78 mg/dL (0-99); Magnesium 2.1 mg/dL (1.6-2.6); Osmolality,Calculated 281 (280-300); Potassium 3.2 mEq/L (3.5-5.1); Sodium 133 mEq/L (136-145); Total Protein 6.7 g/dL (6.4-8.9); Triglycerides 138 mg/dL (< 150); eGFR For African Americans > 60 (> 60); eGFR For Non-African Americans > 60 (> 60)
[2018-01-09] MEDS: *HR* Heparin 5,000 UNIT/ML VIAL SQ SCH ×2 (06:11→17:01)
[2018-01-09] MEDS: methylPREDNISolone 125 MG/2 ML VIAL IVP SCH ×2 (06:12→17:01)
[2018-01-09] MEDS: 0.9 % Sodium Chloride 1,000 ML IVC SCH (06:17)
[2018-01-09] MEDS: Budesonide/Formoterol 160/4.5 MDI IH SCH ×2 (07:40→19:28)
[2018-01-09] MEDS: Multivit/Ca/Min/Fe/FA 1 TAB TABLET PO SCH (08:48)
[2018-01-09] MEDS: Acyclovir 200 MG CAPSULE PO SCH ×2 (08:48→20:50)
[2018-01-09] MEDS: Cholecalciferol (D-3) 1,000 UNIT TABLET PO SCH (08:48)
[2018-01-09] MEDS: Losartan/HCTZ 50-12.5 TABLET PO SCH (08:48)
[2018-01-09] MEDS: Famotidine 20 MG TABLET PO SCH (08:48)
--- NOTE | 2018-01-09 10:40 | Internal Med Progress Note ---
Date of Encounter: 01/09/18 Time of Encounter: 10:39 - Assessment and plan (1) Syncope Current Visit: Yes Status: Acute Assessment and plan: no further syncopal episodes since admission TTE- LVEF 65-70%, no significant LVOT gradient, indeterminate diastolic function , normal RV structure and function, no significant valvular dysfunction, no pulmonary HTN Carotid Doppler studies bilateral carotid dopplers without any flow limiting stenosis Troponins negative 3 MRI pending completion- assess for any possible neurologic process causing syncop Continue Telemetry Neurology consult as an outpatient or inpatient obtain orthostatic vitals BID Qualifiers: Syncope type: unspecified Qualified Code(s): R55 - Syncope and collapse (2) Encephalopathy acute Current Visit: Yes Status: Acute Assessment and plan: Confusion improving Delerium has resolved unclear etiology, possibly d/t abrupt steroid withdrawal (adrenal insufficiency) urine cultures no growth, Patient and deny any medication changes minimize sedating/mind-altering medications see further planning above (3) UTI (urinary tract infection) Current Visit: Yes Status: Suspected Assessment and plan: UA moderate leukocyte esterase Urine cultures no significant growth stop ABX Qualifiers: Urinary tract infection type: acute cystitis Hematuria presence: without hematuria Qualified Code(s): N30.00 - Acute cystitis without hematuria (4) COPD with acute exacerbation Current Visit: Yes Status: Acute Assessment and plan: Respiratory status improving Continue IV steroids, and PRN aerosols IV Levaquin as above very slow steroid taper once clinically improved (5) DVT prophylaxis Current Visit: Yes Status: Acute Assessment and plan: Continue Heparin SQ. - Time Spent With Patient Total time spent is greater than 50% in coordination of care (as documented) at patient's floor/unit and/or counseling patient: 25 - 35 minutes - Subjective Interval history: Seen and examined at bedside today. No acute changes over night. Continues to have urinary frequency and back pain as well as dizziness and weakness - Constitutional Vitals: Temp Pulse Resp BP Pulse Ox 97.7 F 113 18 150/63 96 01/09/18 07:57 01/09/18 07:57 01/09/18 07:57 01/09/18 07:57 01/09/18 07:57 General appearance: Present: cooperative, A&O X 3, pleasant, answers questions appropriately - Head Head exam: Present: atraumatic, normocephalic - Eye Eye exam: Present: PERRL, conjuntiva pink, sclera anicteric Pupils: Present: PERRL - Neck Neck exam general surgery: Present: supple, trachea midline. Absent: lymphadenopathy - Respiratory Respiratory exam: Present: CTAB. Absent: accessory muscle use, rales, rhonchi, wheezes - Cardiovascular Cardiovascular exam: Present: RRR, +S1, +S2. Absent: diastolic murmur, gallop, rubs, systolic murmur - GI/Abdominal GI/Abdominal exam: Present: normal bowel sounds, soft, no peritoneal signs. Absent: distended, tenderness - Extremities Exam Extremities exam: Present: warm, radial pulses palpable and symmetrical. Absent : calf tenderness, cyanotic, pedal edema - Back Exam Back exam: Absent: CVA tenderness (L), CVA tenderness (R) - Neurological Exam Neurological exam: Present: CN II-XII intact, oriented X3, no focal deficits. Absent: pronater drift, facial droop, speech deficit - Skin Skin exam: Present: dry, intact Internal Medicine: Result - Labs CBC & Chem 7: 01/09/18 04:38 01/09/18 04:38 Labs: Short CBC 01/09/18 Range/Units 04:38 WBC 13.2 H (4.3-11.1) K/mcL Hgb 11.8 (11.5-15.4) g/dL Hct 35.6 (35.3-44.9) % Plt Count 330 (140-400) K/mcL Neutrophils # 11.2 H (1.6-8.9) K/mcL BMP 01/09/18 04:38 Sodium 133 L Potassium 3.2 L Chloride 92 L Carbon Dioxide 27 BUN 20 Creatinine 0.82 Glucose 141 H Calcium 9.3 Cardiac Enzymes 01/08/18 01/08/18 Range/Units 15:42 21:40 Troponin I < 0.03 < 0.03 (< 0.04) ng/mL Liver Function 01/09/18 Range/Units 04:38 Total Bilirubin 0.5 (0.3-1.0) mg/dL AST 20 (13-39) Units/L ALT 27 (7-52) Units/L Alkaline Phosphatase 70 (34-104) Units/L Albumin 4.1 (3.5-5.7) g/dL - ABG Interpretation ABG results: PT/INR, D-dimer PT 9.1 Seconds (9.4-12.1) L 01/08/18 10:18 - Impressions Impressions Echocardiogram 01/08/18 12:58 Impressions: LVEF 65-70%. No significant LVOT gradient. Indeterminate diastolic function. Normal right ventricular structure and function. No significant valvular dysfunction. No pulmonary hypertension by TR gradient. Left Ventricular Wall Motion: Rest Echo Findings All wall segments showed normal motion. Findings: Study Quality * Technically adequate exam. ECG Findings * Normal sinus rhythm. Left Ventricle * LVEF 65-70%. * Indeterminate diastolic function. * LV wall thickness measurements not well obtained. * No LVOT gradient. Right Ventricle * Normal right ventricular structure and function. Left Atrium * Left atrium is not well visualized. Right Atrium * Normal right atrial size. Aortic Valve * No aortic regurgitation. * Aortic valve not well visualized. * No aortic stenosis. Mitral Valve * No mitral stenosis. * Trace mitral regurgitation. * Mitral valve not well visualized. Tricuspid Valve * Tricuspid valve not well visualized. * No tricuspid regurgitation. Pulmonic Valve * Pulmonic valve is not well visualized. * No pulmonic stenosis. * No pulmonic regurgitation. Pulmonary Artery * Pulmonary artery not well visualized. Aorta * Normally sized aortic root. * Ascending aorta not visualized. Pericardium * There is no pericardial effusion present. Interatrial Septum * No evidence of PFO by color Doppler. IVC * The IVC is not well evaluated. Consult Discharge Plan - Plan Referrals: Gualberto Coto MD [Primary Care Provider] -
[2018-01-09 16:50] LABS: Folate > 22.3 ng/mL (3.0-16.0); Vitamin B12 > 1500 pg/mL (250-1100)
[2018-01-09 17:50] LABS: Amphetamine Screen,Urine Negative ng/mL (Cutoff=1000); Barbiturate Screen,Urine Negative ng/mL (Cutoff=200); Benzodiazepines Screen,Urine Negative ng/mL (Cutoff=200); Cannabinoid Screen,Urine Negative ng/mL (Cutoff = 50); Cocaine Screen,Urine Negative ng/mL (Cutoff= 300); Opiate Screen,Urine Negative ng/mL (Cutoff=300); Phencyclidine Screen,Urine Negative ng/mL (Cutoff=25)
[2018-01-09] MEDS: FLUoxetine 20 MG CAPSULE PO SCH (20:50)
[2018-01-09] MEDS: Gabapentin 300 MG CAPSULE PO SCH (20:50)
[2018-01-10] MEDS: Ipratropium/Albuterol Neb 3 ML IH SCH ×3 (03:38→11:02)
[2018-01-10 05:24] LABS: Hematocrit 30.7 % (35.3-44.9); Hemoglobin 10.5 g/dL (11.5-15.4); Immature Granulocytes % 0.5 % (0-4); Lymphocytes % 13.5 %; Mean Corpuscular HGB Conc 34.2 g/dL (31.6-35.5); Mean Corpuscular Hemoglobin 31.7 pg (28.0-33.3); Mean Corpuscular Volume 92.7 fL (83.0-100.0); Mean Platelet Volume 9.8 fL (9.4-12.4); Monocytes # 1.4 K/mcL (0.0-1.3); Monocytes % 9.7 %; Neutrophils # 11.4 K/mcL (1.6-8.9); Platelet Count 266 K/mcL (140-400); Red Blood Count 3.31 M/mcL (3.82-4.97); Red Cell Distribution Width 15.4 % (11.5-14.5); Segmented Neutrophils % 76.3 %
[2018-01-10 05:45] LABS: BUN/Creatinine Ratio 29 (6-26); Blood Urea Nitrogen 20 mg/dL (8-23); Carbon Dioxide 29 mEq/L (23-29); Chloride 101 mEq/L (98-107); Glucose 129 mg/dL (70-105); Osmolality,Calculated 284 (280-300); Potassium 3.8 mEq/L (3.5-5.1); Sodium 135 mEq/L (136-145); eGFR For African Americans > 60 (> 60); eGFR For Non-African Americans > 60 (> 60)
[2018-01-10] MEDS: *HR* Heparin 5,000 UNIT/ML VIAL SQ SCH (06:26)
[2018-01-10] MEDS: methylPREDNISolone 125 MG/2 ML VIAL IVP SCH (06:26)
[2018-01-10] MEDS: Budesonide/Formoterol 160/4.5 MDI IH SCH (07:40)
[2018-01-10] MEDS: Cholecalciferol (D-3) 1,000 UNIT TABLET PO SCH (09:19)
[2018-01-10] MEDS: Acyclovir 200 MG CAPSULE PO SCH (09:19)
[2018-01-10] MEDS: Famotidine 20 MG TABLET PO SCH (09:19)
[2018-01-10] MEDS: Losartan/HCTZ 50-12.5 TABLET PO SCH (09:19)
[2018-01-10] MEDS: Multivit/Ca/Min/Fe/FA 1 TAB TABLET PO SCH (09:20)
--- NOTE | 2018-01-10 10:30 | Discharge Summary ---
- NOTES TO OUTPATIENT PROVIDER Notes to Outpatient Provider: Admitted for concerns for multiple falls, confusion, and delusions as well as COPD exacerbation. Was thought to possibly have UTI, ruled out. Was on long-term oral steroids greater than 1 month, had quick steroid taper, concerns for adrenal insufficiency causing presents presentation. Steroids resumed, mental status improved. Discharged with slow steroid taper. Instructed to follow-up with PCP within a week of discharge. No labs or diagnostic studies pending upon discharge Orders not resulted at time of discharge: Pending orders 01/09/18 06:00 ECG 12 lead ECG [ECG] AM 0600 01/11/18 04:00 Basic Metabolic Panel AM 0400 Complete Blood Count [HEME] AM 0400 01/12/18 04:00 Basic Metabolic Panel AM 0400 Complete Blood Count [HEME] AM 0400 Date of Encounter: 01/10/18 Time of Encounter: 10:25 - Discharge Diagnosis (1) Syncope Priority: Primary Status: Acute Assessment and Plan: Patient presented with confusion, delirium, ataxia, and episodes of syncope Appears to have mild dementia, and sundowner's at baseline No further syncopal episodes since admission Mantal status has improved, no longer delirious Fall/syncope with suspected cause of adrenal insufficiency with long-term steroid use greater than one month and quick taper Patient's mental status improved and delusions resolved after resuming IV steroids We will be sent home on 14 day steroid taper, instructed to follow-up with PCP in one week and pulmonology in 2 weeks of discharge Diagnostic studies grossly unremarkable TTE- LVEF 65-70%, no significant LVOT gradient, indeterminate diastolic function , normal RV structure and function, no significant valvular dysfunction, no pulmonary HTN Carotid Doppler studies bilateral carotid dopplers without any flow limiting stenosis Troponins negative 3 MRI with mild chronic microvascular ischemic changes, no acute intracranial abnormalities Orthostatic vitals unremarkable If this persists, consider neurology consult as outpatient obtain orthostatic vitals BID Qualifiers: Syncope type: unspecified Qualified Code(s): R55 - Syncope and collapse (2) Encephalopathy acute Priority: Secondary Status: Resolved Assessment and Plan: resolved (3) UTI (urinary tract infection) Priority: Secondary Status: Ruled-out Assessment and Plan: ruled out Qualifiers: Urinary tract infection type: acute cystitis Hematuria presence: without hematuria Qualified Code(s): N30.00 - Acute cystitis without hematuria (4) COPD with acute exacerbation Priority: Secondary Status: Acute Assessment and Plan: Respiratory status continuing to improve now on room air Has O2 PRN at home, instructed to continue to use PRN Continue COPD meds at D/C Oral steroids with long taper at d/c. Instructed to f/u with PCP within 1-week of D/C to assist with monitoring of taper, also instructed to follow up with pulmonology in 2 weeks of discharge. Hospital course: Ms. Kasper is a 77 year old female Please see assessment and plan for hospital course Discharge discussed with: patient, family, nurse, case management - Time Spent with Patient Total time spent providing and/or coordinating discharge services: Less than 30 minutes - Discharge Medications Home Medications: Acyclovir [Zovirax] 400 mg PO BID 03/15/16 [History] Albuterol Sulfate [Proair Hfa] 2 puff IH Q4H PRN 03/15/16 [History] Alendronate Sodium [Fosamax] 70 mg PO MO 03/15/16 [History] Atorvastatin Calcium [Lipitor] 20 mg PO HS 03/15/16 [History] Budesonide/Formoterol 160/4.5 [Symbicort 160/4.5] 2 puff IH BID 03/15/16 [ History] Cholecalciferol (Vitamin D3) [Vitamin D3] 1,000 unit PO DAILY 03/15/16 [History] FLUoxetine HCl [Prozac] 40 mg PO HS 03/15/16 [History] Ferrous Sulfate [Iron] 325 mg PO DAILY 03/15/16 [History] Furosemide [Lasix] 40 mg PO DAILY 03/15/16 [History] Gabapentin [Neurontin] 600 mg PO HS 03/15/16 [History] Ipratropium/Albuterol Neb [Duoneb] 3 ml IH QID PRN 03/15/16 [History] Montelukast [Singulair] 10 mg PO DAILY 03/15/16 [History] Omalizumab [XOLAIR (For Outpatient Infusion)] 150 mg IJ QMONTH 03/15/16 [History ] Omeprazole [PriLOSEC] 40 mg PO DAILY 03/15/16 [History] Oxygen 3 - 4 l NS AD 03/15/16 [History] Ranitidine HCl [Heartburn Relief] 150 mg PO BID 03/15/16 [History] Acetaminophen [Acetaminophen ER] 650 mg PO BID PRN 01/08/18 [History] EPINEPHrine [Epipen] 0.3 mg IJ ONCE PRN 01/08/18 [History] Losartan/HCTZ [Hyzaar 50-12.5 Tablet] 1 tab PO DAILY 01/08/18 [History] Multivit-Min/Iron/Folic/Lutein [Centrum Silver Women Tablet] 1 tab PO DAILY [History] traZODone [TraZODone] 50 mg PO HS 01/08/18 [History] predniSONE [PredniSONE] 10 mg PO DAILY #55 tablet 01/10/18 [Rx] Allergies/Adverse Reactions: 3 Allergy/AdvReac Type Severity Reaction Status Date / Time ibandronate sodium Allergy Hives Verified 01/08/18 12:31 [From [facility]] latex Allergy Hives Verified 01/08/18 12:31 Penicillins Allergy Anaphylaxis Verified 01/08/18 12:31 Sulfa (Sulfonamide Allergy Anaphylaxis Verified 01/08/18 12:31 Antibiotics) Tetanus Vaccines and Toxoid Allergy Hives Verified 01/08/18 12:31 [Tetanus Vaccines & Toxoid] tiotropium Allergy Hives Verified 01/08/18 12:31 [From Spiriva with [employer]iHaler] codeine AdvReac Confusion Verified 01/08/18 12:31 estradiol AdvReac unknown Verified 01/08/18 12:31 per patient morphine AdvReac Confusion Verified 01/08/18 12:31 Date of admission: 01/08/18 12:25 Primary care physician: Gualberto Coto MD Consults: 01/08/18 13:54 Consult to Nutrition [CONS] Routine Comment: Consulting Provider: NUTRITION Reason for Dietary Consult: MST Score 01/09/18 11:15 Consult to Physical Therapy [CONS] Routine Comment: Evaluate, develop and implement POC Reason for Consult: weakness and falls at home. Does patient have active BEDREST order?: No Is patient medically & hemodynamically stable?: Yes Patient assessed for mobility or mobilized this visit?: Yes 01/09/18 11:40 Consult to Nurse Navigator [CONS] Routine Comment: COPD Discharging clinician: Westley Scott Anticipated date of discharge: 01/10/18 - Constitutional Vitals: Temp Pulse Resp BP Pulse Ox 98.8 F 91 16 150/76 100 01/10/18 07:13 01/10/18 07:13 01/10/18 07:40 01/10/18 07:13 01/10/18 07:40 General appearance: Present: cooperative, A&O X 3, pleasant, answers questions appropriately - Head Head exam: Present: atraumatic, normocephalic - Eye Eye exam: Present: EOMI, PERRL, conjuntiva pink, sclera anicteric Pupils: Present: PERRL - Neck Neck exam general surgery: Present: supple, trachea midline. Absent: lymphadenopathy - Respiratory Respiratory exam: Present: CTAB. Absent: accessory muscle use, rales, rhonchi, wheezes - Cardiovascular Cardiovascular exam: Present: RRR, +S1, +S2. Absent: diastolic murmur, gallop, rubs, systolic murmur - GI/Abdominal GI/Abdominal exam: Present: normal bowel sounds, soft, no peritoneal signs. Absent: distended, tenderness - Extremities Exam Extremities exam: Present: warm, radial pulses palpable and symmetrical. Absent : calf tenderness, cyanotic, pedal edema - Neurological Exam Neurological exam: Present: alert, CN II-XII intact, oriented X3, no focal deficits, strengths equal and symetr throughout. Absent: pronater drift, facial droop, speech deficit - Skin Skin exam: Present: dry, intact - Patient Status Disposition: Home, Self-Care Condition: Fair Overall status at discharge: patient is back to baseline - Discharge Instructions Follow Up With: Gualberto Coto MD [Primary Care Provider] - (Follow up appointment has been requested) - Diet and Activity Activity: increase activity as tolerated Diet: advance to your usual diet
[2018-01-10 11:16] VITALS: BP 148/73
[2018-01-11] MEDS ORDERED: predniSONE 20 MG TABLET PO SCH (09:00)
== END 2018-01-10 11:47 | disposition home or self-care (01) ==
LOC: EMEROO 09:48 → 3BNU 09:48
PROVIDERS: ADMIT Pediatrics; ATTEND Hospitalist

== ENCOUNTER 2018-01-23 10:10 | Observation (INO) ==
--- NOTE | 2018-01-23 10:54 | Emergency Department Note ---
Disposition Clinical Impression: Altered mental status, unspecified Qualifiers: Altered mental status type: unspecified Qualified Code(s): R41.82 - Altered mental status, unspecified Disposition: Still a Patient Condition: Fair Referrals: Gualberto Coto MD [Primary Care Provider] - Forms: Work/School Release, ED Satisfaction Letter Time of Disposition: 10:58 Altered Mental Status HPI - General Chief Complaint: ED Altered Mental Status Stated Complaint: AMS Time Seen by Provider: 01/23/18 10:16 Source: patient, other Limitations: altered mental status Nursing Notes Reviewed: Yes Vital Signs Reviewed: Yes - History of Present Illness HPI Narrative: 77-year-old female is brought by her spouse for repeat evaluation of worsening altered mental status. The patient was admitted to this facility and discharged on 01/10/18 for similar presentation. At that time, she was admitted for concerns for multiple falls, confusion, delusions, as well as a COPD exacerbation. There is concern that she might have had adrenal insufficiency caused by a long-term oral steroid use and a quick steroid taper. She was discharged home with a slow steroid taper and instructed to follow-up with her PCP. According to the spouse's report, the patient has transitioned from becoming confused only at night, to being confused throughout the majority of the day. He states that she is sleeping much more than usual. He denies any additional falls since her admission here. The patient is a very poor historian but when asked about additional complaints, the patient states that she has been experiencing some substernal chest pain for quite some time. She is unable to describe details of this pain such as characteristics, or aggravating/alleviating factors. complaint: altered mental status Onset (ago): unknown Timing confirmed by: spouse Consistency of Symptoms: getting worse Context: history of similar presentation Associated symptoms: Reports: chest pain - Related Data Home Medications Medication Instructions Recorded Confirmed Acyclovir [Zovirax] 400 mg PO BID 03/15/16 01/08/18 Albuterol Sulfate [Proair Hfa] 2 puff IH Q4H PRN 03/15/16 01/08/18 Alendronate Sodium [Fosamax] 70 mg PO MO 03/15/16 01/08/18 Atorvastatin Calcium [Lipitor] 20 mg PO HS 03/15/16 01/08/18 Budesonide/Formoterol 160/4.5 2 puff IH BID 03/15/16 01/08/18 [Symbicort 160/4.5] Cholecalciferol (Vitamin D3) 1,000 unit PO DAILY 03/15/16 01/08/18 [Vitamin D3] FLUoxetine HCl [Prozac] 40 mg PO HS 03/15/16 01/08/18 Ferrous Sulfate [Iron] 325 mg PO DAILY 03/15/16 01/08/18 Furosemide [Lasix] 40 mg PO DAILY 03/15/16 01/08/18 Gabapentin [Neurontin] 600 mg PO HS 03/15/16 01/08/18 Ipratropium/Albuterol Neb [Duoneb] 3 ml IH QID PRN 03/15/16 01/08/18 Montelukast [Singulair] 10 mg PO DAILY 03/15/16 01/08/18 Omalizumab [XOLAIR (For Outpatient 150 mg IJ QMONTH 03/15/16 01/08/18 Infusion)] Omeprazole [PriLOSEC] 40 mg PO DAILY 03/15/16 01/08/18 Oxygen 3 - 4 l NS AD 03/15/16 08/22/16 Ranitidine HCl [Heartburn Relief] 150 mg PO BID 03/15/16 01/08/18 Acetaminophen [Acetaminophen ER] 650 mg PO BID PRN 01/08/18 01/08/18 EPINEPHrine [Epipen] 0.3 mg IJ ONCE PRN 01/08/18 01/08/18 Losartan/HCTZ [Hyzaar 50-12.5 1 tab PO DAILY 01/08/18 01/08/18 Tablet] Multivit-Min/Iron/Folic/Lutein 1 tab PO DAILY 01/08/18 01/08/18 [Centrum Silver Women Tablet] traZODone [TraZODone] 50 mg PO HS 01/08/18 01/08/18 Previous Rx's Medication Instructions Recorded predniSONE [PredniSONE] 10 mg PO DAILY #55 tablet 01/10/18 Allergies Allergy/AdvReac Type Severity Reaction Status Date / Time ibandronate sodium Allergy Hives Verified 01/23/18 10:28 [From [facility]] latex Allergy Hives Verified 01/23/18 10:28 Penicillins Allergy Anaphylaxis Verified 01/23/18 10:28 Sulfa (Sulfonamide Allergy Anaphylaxis Verified 01/23/18 10:28 Antibiotics) Tetanus Vaccines and Toxoid Allergy Hives Verified 01/23/18 10:28 [Tetanus Vaccines & Toxoid] tiotropium Allergy Hives Verified 01/23/18 10:28 [From Spiriva with HandiHaler] codeine AdvReac Confusion Verified 01/23/18 10:28 estradiol AdvReac unknown Verified 01/23/18 10:28 per patient morphine AdvReac Confusion Verified 01/23/18 10:28 All systems ED: reviewed and negative except as stated. Constitutional: Reports: as per HPI, other (Altered mental status). Denies: fever, chills, weakness, weight change Eyes: Denies: eye pain, eye discharge, vision change ENT ED: Denies: ear pain, throat pain, dental pain, hearing loss, epistaxis, congestion, dysphagia Cardiovascular: Reports: as per HPI, chest pain. Denies: palpitations, dyspnea on exertion, edema, syncope Respiratory: Denies: cough, dyspnea, wheezes, hemoptysis, stridor Gastrointestinal: Denies: abdominal pain, nausea, vomiting, diarrhea, constipation, hematemesis, melena, hematochezia Genitourinary: Denies: dysuria, frequency, hematuria, discharge Musculoskeletal: Denies: back pain, neck pain, arthralgia, myalgia Integumentary: Denies: rash, abrasion, lesions Neurological: Denies: headache, weakness, numbness, paresthesias, confusion, abnormal gait, vertigo Psychiatric: Denies: anxiety, depression, suicidal thoughts, homicidal thoughts , auditory hallucinations, visual hallucinations Endocrine: Denies: fatigue Hematological/Lymphatic: Denies: easy bleeding, easy bruising Allergic/Immunologic: Denies: facial swelling, urticaria Past Medical History - Past Medical History Attestation: Yes The following information was validated with the patient. Source: obtained from family, nursing notes reviewed Medical history: Reports: arthritis, asthma, cancer, COPD, GERD, seizures Surgical history: Reports: appendectomy, cholecystectomy, colectomy, herniorrhaphy, hysterectomy, orthopedic, other, splenectomy, HAMMAD/BSO Psychiatric history: Reports: no psych history - Social History Smoking Status: Former smoker Smokeless Tobacco Status: No Alcohol use: Reports: none Drug use: Reports: none Physical Exam - General Limitations: altered mental status General appearance: alert, in no apparent distress - Head Head exam: atraumatic, normocephalic, normal inspection - Eye Eye exam: Present: normal appearance, PERRL, EOMI - ENT ENT exam: mucous membranes moist - Neck Neck exam: Present: normal inspection, full ROM, trachea midline - Chest Chest inspection: Present: normal inspection, symmetric chest wall rise - Respiratory Respiratory exam: Present: normal lung sounds bilaterally. Absent: respiratory distress, wheezes, stridor, accessory muscle use, prolonged expiratory phase - Cardiovascular Cardiovascular exam: Present: regular rate, normal rhythm, normal heart sounds - Abdominal Exam Abdominal exam: Present: soft, Non-Tender, normal bowel sounds - Extremities Exam Extremities exam: Present: normal inspection, full ROM. Absent: tenderness, pedal edema - Neurological Exam Neurological exam: Present: alert - Expanded Neurological Exam Patient oriented to: Present: person. Absent: place, time Coma Scale Eye Opening: Spontaneous Coma Scale Motor Response: Obeys Commands Coma Scale Verbal Response: Confused Coma Scale Total: 14 - Psychiatric Psychiatric exam: Present: flat affect - Skin Skin exam: Present: warm, dry, intact, normal color. Absent: rash Course Vital Signs Temperature 98.1 F 01/23/18 10:11 Pulse Rate 98 01/23/18 10:11 Respiratory Rate 24 01/23/18 10:11 Blood Pressure 116/77 01/23/18 10:11 O2 Sat by Pulse Oximetry 95 01/23/18 10:11 Temperature 98.1 F 01/23/18 10:40 Pulse Rate 80 01/23/18 10:40 Respiratory Rate 20 01/23/18 10:40 Blood Pressure 143/67 01/23/18 10:40 O2 Sat by Pulse Oximetry 97 01/23/18 10:40 Oxygen Delivery Oxygen Delivery Room Air Altered Mental Status - Medical Records Medical records reviewed: Yes I reviewed the patient's medical records. - EKG Data EKG attestation: Yes I reviewed and interpreted this EKG. EKG results narrative: EKG reviewed by Dr. Kylie Hikcs as well. EKG shows sinus rhythm with occasional supraventricular premature complexes at a ventricular rate of 91 bpm. GA interval 168, QRS duration 105, QT/QTc interval 356/405. No ST elevation noted. Inverted T waves apparent in leads V4 and V5 which appear new from the patient's previous EKG dated from 01/08/18. TPA Checklist - LKW: 3-4.5 hrs Add. Warnings/Precautions Patient/family understanding: The patient/family members have been counseled and understood the risk, benefit , and alternatives of treatment. S.B.Sandra - Anita Situation: Demographics, MOA Background: Presenting Complaint, Relevant PMH, Meds, & Allergies Assessment: Vital Signs, Course and respsone to treatment, Exam Concerns, Patient/Family Expectation, Pertinant Lab Results, Outstanding Labs Recommendation: Barrier(s) to disposition, Recommendation based on pending studies, treatments, or consults S.B.A.Nicho Report Given to: Dr. Bratxon Howard Repor Time: 11:00
--- NOTE | 2018-01-23 10:57 | Emergency Department Note ---
Disposition Clinical Impression: NSTEMI (non-ST elevated myocardial infarction) Altered mental status, unspecified Qualifiers: Altered mental status type: unspecified Qualified Code(s): R41.82 - Altered mental status, unspecified Disposition: Admitted As Inpatient Condition: Fair Referrals: Gualberto Coto MD [Primary Care Provider] - Forms: ED Satisfaction Letter, Work/School Release Time of Disposition: 11:46 General Adult HPI - General Chief complaint: ED Altered Mental Status Stated complaint: AMS Time Seen by Provider: 01/23/18 10:16 Source: patient, other Limitations: altered mental status - History of Present Illness Pain Scale: 10 - Related Data Home Medications Medication Instructions Recorded Confirmed Acyclovir [Zovirax] 400 mg PO BID 03/15/16 01/08/18 Albuterol Sulfate [Proair Hfa] 2 puff IH Q4H PRN 03/15/16 01/08/18 Alendronate Sodium [Fosamax] 70 mg PO MO 03/15/16 01/08/18 Atorvastatin Calcium [Lipitor] 20 mg PO HS 03/15/16 01/08/18 Budesonide/Formoterol 160/4.5 2 puff IH BID 03/15/16 01/08/18 [Symbicort 160/4.5] Cholecalciferol (Vitamin D3) 1,000 unit PO DAILY 03/15/16 01/08/18 [Vitamin D3] FLUoxetine HCl [Prozac] 40 mg PO HS 03/15/16 01/08/18 Ferrous Sulfate [Iron] 325 mg PO DAILY 03/15/16 01/08/18 Furosemide [Lasix] 40 mg PO DAILY 03/15/16 01/08/18 Gabapentin [Neurontin] 600 mg PO HS 03/15/16 01/08/18 Ipratropium/Albuterol Neb [Duoneb] 3 ml IH QID PRN 03/15/16 01/08/18 Montelukast [Singulair] 10 mg PO DAILY 03/15/16 01/08/18 Omalizumab [XOLAIR (For Outpatient 150 mg IJ QMONTH 03/15/16 01/08/18 Infusion)] Omeprazole [PriLOSEC] 40 mg PO DAILY 03/15/16 01/08/18 Oxygen 3 - 4 l NS AD 03/15/16 08/22/16 Ranitidine HCl [Heartburn Relief] 150 mg PO BID 03/15/16 01/08/18 Acetaminophen [Acetaminophen ER] 650 mg PO BID PRN 01/08/18 01/08/18 EPINEPHrine [Epipen] 0.3 mg IJ ONCE PRN 01/08/18 01/08/18 Losartan/HCTZ [Hyzaar 50-12.5 1 tab PO DAILY 01/08/18 01/08/18 Tablet] Multivit-Min/Iron/Folic/Lutein 1 tab PO DAILY 01/08/18 01/08/18 [Centrum Silver Women Tablet] traZODone [TraZODone] 50 mg PO HS 01/08/18 01/08/18 Previous Rx's Medication Instructions Recorded predniSONE [PredniSONE] 10 mg PO DAILY #55 tablet 01/10/18 Allergies Allergy/AdvReac Type Severity Reaction Status Date / Time ibandronate sodium Allergy Hives Verified 01/23/18 10:28 [From Boniva] latex Allergy Hives Verified 01/23/18 10:28 Penicillins Allergy Anaphylaxis Verified 01/23/18 10:28 Sulfa (Sulfonamide Allergy Anaphylaxis Verified 01/23/18 10:28 Antibiotics) Tetanus Vaccines and Toxoid Allergy Hives Verified 01/23/18 10:28 [Tetanus Vaccines & Toxoid] tiotropium Allergy Hives Verified 01/23/18 10:28 [From Spiriva with HandiHaler] codeine AdvReac Confusion Verified 01/23/18 10:28 estradiol AdvReac unknown Verified 01/23/18 10:28 per patient morphine AdvReac Confusion Verified 01/23/18 10:28 Constitutional: Reports: as per HPI, other (Altered mental status). Denies: fever, chills, weakness, weight change Eyes: Denies: eye pain, eye discharge, vision change ENT ED: Denies: ear pain, throat pain, dental pain, hearing loss, epistaxis, congestion, dysphagia Cardiovascular: Denies: chest pain, palpitations, dyspnea on exertion, edema, syncope Respiratory: Denies: cough, dyspnea, wheezes, hemoptysis, stridor Gastrointestinal: Denies: abdominal pain, nausea, vomiting, diarrhea, constipation, hematemesis, melena, hematochezia Genitourinary: Denies: dysuria, frequency, hematuria, discharge Musculoskeletal: Denies: back pain, neck pain, arthralgia, myalgia Integumentary: Denies: rash, abrasion, lesions Neurological: Denies: headache, weakness, numbness, paresthesias, confusion, abnormal gait, vertigo Psychiatric: Denies: anxiety, depression, suicidal thoughts, homicidal thoughts , auditory hallucinations, visual hallucinations Endocrine: Denies: fatigue Hematological/Lymphatic: Denies: easy bleeding, easy bruising Allergic/Immunologic: Denies: facial swelling, urticaria Past Medical History - Past Medical History Medical history: Reports: arthritis, asthma, cancer, COPD, GERD, seizures Surgical history: Reports: appendectomy, cholecystectomy, colectomy, herniorrhaphy, hysterectomy, orthopedic, other, splenectomy, HAMMAD/BSO Psychiatric history: Reports: no psych history - Social History Smoking Status: Former smoker Smokeless Tobacco Status: No Alcohol use: Reports: none Drug use: Reports: none Physical Exam - General Limitations: altered mental status Course Vital Signs Temperature 98.1 F 01/23/18 10:11 Pulse Rate 98 01/23/18 10:11 Respiratory Rate 24 01/23/18 10:11 Blood Pressure 116/77 01/23/18 10:11 O2 Sat by Pulse Oximetry 95 01/23/18 10:11 Temperature 98.1 F 01/23/18 10:40 Pulse Rate 93 01/23/18 11:02 Respiratory Rate 20 01/23/18 11:02 Blood Pressure 144/88 01/23/18 11:02 O2 Sat by Pulse Oximetry 94 01/23/18 11:02 Oxygen Delivery Oxygen Delivery Room Air Medical Decision Making - Medical Records Medical records reviewed: Yes I reviewed the patient's medical records. - Lab Data Lab results reviewed: Yes I reviewed the patient's lab results. Result diagrams: 01/23/18 10:54 01/23/18 10:54 Lab Results 01/23/18 01/23/18 01/23/18 Range/Units 10:53 10:53 10:54 WBC 14.5 H (4.3-11.1) K/mcL RBC 4.51 (3.82-4.97) M/mcL Hgb 14.4 (11.5-15.4) g/dL Hct 41.6 (35.3-44.9) % MCV 92.2 (83.0-100.0) fL MCH 31.9 (28.0-33.3) pg MCHC 34.6 (31.6-35.5) g/dL RDW 14.7 H (11.5-14.5) % Plt Count 308 (140-400) K/mcL MPV 9.2 L (9.4-12.4) fL Immature Gran % 0.4 (0-4) % Seg Neutrophils % 83.1 % Lymphocytes % 10.2 % Monocytes % 6.2 % Eosinophils % 0.0 % Basophils % 0.1 % Neutrophils # 12.0 H (1.6-8.9) K/mcL Lymphocytes # 1.5 (0.6-4.6) K/mcL Monocytes # 0.9 (0.0-1.3) K/mcL Eosinophils # 0.0 (0.0-0.6) K/mcL Basophils # 0.0 (0.0-0.2) K/mcL PT (9.4-12.1) Seconds INR APTT (26.0-36.0) Seconds Sodium (136-145) mEq/L Potassium (3.5-5.1) mEq/L Chloride (98-107) mEq/L Carbon Dioxide (23-29) mEq/L BUN (8-23) mg/dL Creatinine (0.60-1.20) mg/dL Est GFR ( Amer) (> 60) Est GFR (Non-Af Amer) (> 60) BUN/Creatinine Ratio (6-26) Glucose (70-105) mg/dL Calculated Osmolality (280-300) Lactic Acid (0.5-2.2) mmol/L Calcium (8.6-10.3) mg/dL Total Bilirubin (0.3-1.0) mg/dL Direct Bilirubin (0.0-0.2) mg/dL Indirect Bilirubin (0.0-1.2) mg/dL AST (13-39) Units/L ALT (7-52) Units/L Alkaline Phosphatase (34-104) Units/L Ammonia (16-53) mcmol/L Troponin I (< 0.04) ng/mL Serum Total Protein (6.4-8.9) g/dL Albumin (3.5-5.7) g/dL Globulin (2.4-3.5) g/dL Albumin/Globulin Ratio (1.1-2.2) Urine Color Yellow (Yellow) Urine Clarity Cloudy A (Clear) Urine pH 7.0 (5.0-8.0) pH Units Ur Specific [place] 1.011 (1.010-1.025) Urine Protein Negative (Neg-Trace) mg/dL Urine Glucose (UA) Normal (Normal) mg/dL Urine Ketones Negative (Negative) mg/dL Urine Blood Negative (Negative) Urine Nitrite Negative (Negative) Urine Bilirubin Negative (Negative) Urine Urobilinogen Normal (Normal) mg/dL Ur Leukocyte Esterase Negative (Negative) Urine Microscopic RBC 0-3 (0-3) per hpf Urine Microscopic WBC 0-3 (0-3) per hpf Ur Squamous Epith Cells Many H (None-Few) per lpf Urine Bacteria None Seen (None-Few) per hpf Hyaline Casts Few (None-Few) per lpf Ur Culture Indicated? NO (NO) Urine Opiates Screen Negative (Xmzexu=704) ng/mL Ur Barbiturates Screen Negative (Gbhvhe=250) ng/mL Ur Phencyclidine Scrn Negative (Cutoff=25) ng/mL Ur Amphetamines Screen Negative (Epirez=7508) ng/mL U Benzodiazepines Scrn Negative (Bgbywh=715) ng/mL Urine Cocaine Screen Negative (Cutoff= 300) ng/mL U Marijuana (THC) Screen Negative (Cutoff = 50) ng/mL Ur Drug Screen Interp See Below Ethyl Alcohol (Less than 10) mg/dL 01/23/18 01/23/18 01/23/18 Range/Units 10:54 10:54 10:54 WBC (4.3-11.1) K/mcL RBC (3.82-4.97) M/mcL Hgb (11.5-15.4) g/dL Hct (35.3-44.9) % MCV (83.0-100.0) fL MCH (28.0-33.3) pg MCHC (31.6-35.5) g/dL RDW (11.5-14.5) % Plt Count (140-400) K/mcL MPV (9.4-12.4) fL Immature Gran % (0-4) % Seg Neutrophils % % Lymphocytes % % Monocytes % % Eosinophils % % Basophils % % Neutrophils # (1.6-8.9) K/mcL Lymphocytes # (0.6-4.6) K/mcL Monocytes # (0.0-1.3) K/mcL Eosinophils # (0.0-0.6) K/mcL Basophils # (0.0-0.2) K/mcL PT 9.9 (9.4-12.1) Seconds INR 0.9 APTT 18.4 L (26.0-36.0) Seconds Sodium 131 L (136-145) mEq/L Potassium 3.5 (3.5-5.1) mEq/L Chloride 82 L (98-107) mEq/L Carbon Dioxide 36 H (23-29) mEq/L BUN 28 H (8-23) mg/dL Creatinine 1.59 H (0.60-1.20) mg/dL Est GFR ( Amer) 38 L (> 60) Est GFR (Non-Af Amer) 32 L (> 60) BUN/Creatinine Ratio 18 (6-26) Glucose 168 H (70-105) mg/dL Calculated Osmolality 281 (280-300) Lactic Acid (0.5-2.2) mmol/L Calcium 9.9 (8.6-10.3) mg/dL Total Bilirubin 0.7 (0.3-1.0) mg/dL Direct Bilirubin 0.2 (0.0-0.2) mg/dL Indirect Bilirubin 0.5 (0.0-1.2) mg/dL AST 28 (13-39) Units/L ALT 26 (7-52) Units/L Alkaline Phosphatase 84 (34-104) Units/L Ammonia 29 (16-53) mcmol/L Troponin I 0.04 H* (< 0.04) ng/mL Serum Total Protein 7.0 (6.4-8.9) g/dL Albumin 4.4 (3.5-5.7) g/dL Globulin 2.6 (2.4-3.5) g/dL Albumin/Globulin Ratio 1.7 (1.1-2.2) Urine Color (Yellow) Urine Clarity (Clear) Urine pH (5.0-8.0) pH Units Ur Specific [place] (1.010-1.025) Urine Protein (Neg-Trace) mg/dL Urine Glucose (UA) (Normal) mg/dL Urine Ketones (Negative) mg/dL Urine Blood (Negative) Urine Nitrite (Negative) Urine Bilirubin (Negative) Urine Urobilinogen (Normal) mg/dL Ur Leukocyte Esterase (Negative) Urine Microscopic RBC (0-3) per hpf Urine Microscopic WBC (0-3) per hpf Ur Squamous Epith Cells (None-Few) per lpf Urine Bacteria (None-Few) per hpf Hyaline Casts (None-Few) per lpf Ur Culture Indicated? (NO) Urine Opiates Screen (Dbrylk=234) ng/mL Ur Barbiturates Screen (Kgtewc=562) ng/mL Ur Phencyclidine Scrn (Cutoff=25) ng/mL Ur Amphetamines Screen (Fokvhr=6995) ng/mL U Benzodiazepines Scrn (Xwxcjl=714) ng/mL Urine Cocaine Screen (Cutoff= 300) ng/mL U Marijuana (THC) Screen (Cutoff = 50) ng/mL Ur Drug Screen Interp Ethyl Alcohol < 10 (Less than 10) mg/dL 01/23/18 Range/Units 10:59 WBC (4.3-11.1) K/mcL RBC (3.82-4.97) M/mcL Hgb (11.5-15.4) g/dL Hct (35.3-44.9) % MCV (83.0-100.0) fL MCH (28.0-33.3) pg MCHC (31.6-35.5) g/dL RDW (11.5-14.5) % Plt Count (140-400) K/mcL MPV (9.4-12.4) fL Immature Gran % (0-4) % Seg Neutrophils % % Lymphocytes % % Monocytes % % Eosinophils % % Basophils % % Neutrophils # (1.6-8.9) K/mcL Lymphocytes # (0.6-4.6) K/mcL Monocytes # (0.0-1.3) K/mcL Eosinophils # (0.0-0.6) K/mcL Basophils # (0.0-0.2) K/mcL PT (9.4-12.1) Seconds INR APTT (26.0-36.0) Seconds Sodium (136-145) mEq/L Potassium (3.5-5.1) mEq/L Chloride (98-107) mEq/L Carbon Dioxide (23-29) mEq/L BUN (8-23) mg/dL Creatinine (0.60-1.20) mg/dL Est GFR ( Amer) (> 60) Est GFR (Non-Af Amer) (> 60) BUN/Creatinine Ratio (6-26) Glucose (70-105) mg/dL Calculated Osmolality (280-300) Lactic Acid 1.3 (0.5-2.2) mmol/L Calcium (8.6-10.3) mg/dL Total Bilirubin (0.3-1.0) mg/dL Direct Bilirubin (0.0-0.2) mg/dL Indirect Bilirubin (0.0-1.2) mg/dL AST (13-39) Units/L ALT (7-52) Units/L Alkaline Phosphatase (34-104) Units/L Ammonia (16-53) mcmol/L Troponin I (< 0.04) ng/mL Serum Total Protein (6.4-8.9) g/dL Albumin (3.5-5.7) g/dL Globulin (2.4-3.5) g/dL Albumin/Globulin Ratio (1.1-2.2) Urine Color (Yellow) Urine Clarity (Clear) Urine pH (5.0-8.0) pH Units Ur Specific [place] (1.010-1.025) Urine Protein (Neg-Trace) mg/dL Urine Glucose (UA) (Normal) mg/dL Urine Ketones (Negative) mg/dL Urine Blood (Negative) Urine Nitrite (Negative) Urine Bilirubin (Negative) Urine Urobilinogen (Normal) mg/dL Ur Leukocyte Esterase (Negative) Urine Microscopic RBC (0-3) per hpf Urine Microscopic WBC (0-3) per hpf Ur Squamous Epith Cells (None-Few) per lpf Urine Bacteria (None-Few) per hpf Hyaline Casts (None-Few) per lpf Ur Culture Indicated? (NO) Urine Opiates Screen (Anuhkd=786) ng/mL Ur Barbiturates Screen (Qtyysn=235) ng/mL Ur Phencyclidine Scrn (Cutoff=25) ng/mL Ur Amphetamines Screen (Xnaqiq=1238) ng/mL U Benzodiazepines Scrn (Xtfgel=590) ng/mL Urine Cocaine Screen (Cutoff= 300) ng/mL U Marijuana (THC) Screen (Cutoff = 50) ng/mL Ur Drug Screen Interp Ethyl Alcohol (Less than 10) mg/dL - Radiology Data Radiology results reviewed: Yes I reviewed the patient's radiology results. - EKG Data EKG #1 EKG attestation: Yes I reviewed and interpreted this EKG. EKG results narrative: Normal sinus rhythm with PACs rate 91 DE 168 QRS 105 QT/QTC 356/405. ST segment depression in the inferior and lateral leads. ST segment depression more pronounced in lead V4 and V5 compared to previous study dated 01/08/18 Critical Care Time Critical Care Time: Yes Total Critical Care Time: 30 Attestation: The high probability of a clinically significant, sudden or life threatening deterioration of the [] system(s) required my full and direct attention, intervention and personal management. The aggregate critical care time was [] minutes. This time is in addition to time spent performing reported procedures but includes the following: [] Data Review and interpretation [] Patient assessment and monitoring of vital signs [] Documentation [] Medication orders and management Attestation Statement - Attestation Attestation: For this encounter, I have reviewed the MANAGER MOTOR or PA documentation, treatment plan, and medical decision making; and I have had face to face time with this patient. [id number] time provided Care assumed from the nurse practitioner at 11 AM pending labs, radiographic imaging studies, reevaluation. The patient presents with ongoing confusion. She was recently admitted for similar symptoms and discharged home. She lives at home with her significant other. She is sleeping at the time of my exam. All studies pending 11:14: The patient had complained to her significant other of chest pain today. She had a cardiac catheterization several years ago without known stent deployment. Her troponin is elevated today. The significant other also states the patient has had no appetite and has been increasingly confused during the day
[2018-01-23 11:19] LABS: Basophils % 0.1 %; Hematocrit 41.6 % (35.3-44.9); Hemoglobin 14.4 g/dL (11.5-15.4); Immature Granulocytes % 0.4 % (0-4); Lymphocytes # 1.5 K/mcL (0.6-4.6); Lymphocytes % 10.2 %; Mean Corpuscular HGB Conc 34.6 g/dL (31.6-35.5); Mean Corpuscular Hemoglobin 31.9 pg (28.0-33.3); Mean Corpuscular Volume 92.2 fL (83.0-100.0); Mean Platelet Volume 9.2 fL (9.4-12.4); Monocytes # 0.9 K/mcL (0.0-1.3); Monocytes % 6.2 %; Platelet Count 308 K/mcL (140-400); Red Blood Count 4.51 M/mcL (3.82-4.97); Red Cell Distribution Width 14.7 % (11.5-14.5); Segmented Neutrophils % 83.1 %
[2018-01-23 11:20] LABS: Bilirubin,Urine Negative (Negative); Blood,Urine Negative (Negative); Clarity,Urine Cloudy (Clear); Color,Urine Yellow (Yellow); Glucose,Urine (UA) Normal (Normal); Ketones,Urine Negative (Negative); Leukocyte Esterase,Urine Negative (Negative); Nitrite,Urine Negative (Negative); Protein,Urine Negative (Neg-Trace); Specific Gravity,Urine 1.011 (1.010-1.025); Urobilinogen,Urine Normal (Normal)
[2018-01-23 11:23] LABS: Bacteria,Urine None Seen per hpf (None-Few); RBC,Urine 0-3 per hpf (0-3); Squamous Epithelial Cell,Urine Many per lpf (None-Few); WBC,Urine 0-3 per hpf (0-3)
[2018-01-23 11:28] LABS: INR 0.9; Prothrombin Time 9.9 Seconds (9.4-12.1)
[2018-01-23 11:29] LABS: Amphetamine Screen,Urine Negative ng/mL (Cutoff=1000); Barbiturate Screen,Urine Negative ng/mL (Cutoff=200); Benzodiazepines Screen,Urine Negative ng/mL (Cutoff=200); Cannabinoid Screen,Urine Negative ng/mL (Cutoff = 50); Cocaine Screen,Urine Negative ng/mL (Cutoff= 300); Opiate Screen,Urine Negative ng/mL (Cutoff=300); Phencyclidine Screen,Urine Negative ng/mL (Cutoff=25)
[2018-01-23 11:33] LABS: Activated Partial Thrombo Time 18.4 Seconds (26.0-36.0)
[2018-01-23 11:37] LABS: Hyaline Casts,Urine Few per lpf (None-Few)
[2018-01-23 11:38] LABS: Alanine Aminotransferase 26 Units/L (7-52); Albumin 4.4 g/dL (3.5-5.7); Albumin/Globulin Ratio 1.7 (1.1-2.2); Alkaline Phosphatase 84 Units/L (34-104); Aspartate Amino Transferase 28 Units/L (13-39); BUN/Creatinine Ratio 18 (6-26); Bilirubin,Direct 0.2 mg/dL (0.0-0.2); Bilirubin,Indirect 0.5 mg/dL (0.0-1.2); Bilirubin,Total 0.7 mg/dL (0.3-1.0); Blood Urea Nitrogen 28 mg/dL (8-23); Calcium 9.9 mg/dL (8.6-10.3); Carbon Dioxide 36 mEq/L (23-29); Chloride 82 mEq/L (98-107); Ethanol < 10 mg/dL (Less than 10); Globulin 2.6 g/dL (2.4-3.5); Glucose 168 mg/dL (70-105); Osmolality,Calculated 281 (280-300); Potassium 3.5 mEq/L (3.5-5.1); Sodium 131 mEq/L (136-145); eGFR For African Americans 38 (> 60); eGFR For Non-African Americans 32 (> 60)
[2018-01-23 11:42] LABS: Troponin I 0.04 ng/mL (< 0.04)
[2018-01-23] MEDS ORDERED: *HR* Heparin 5,000 UNIT/ML VIAL IVP ONE (11:46)
[2018-01-23] MEDS ORDERED: *HR* Heparin 5,000 UNIT/ML VIAL IVP PRN ×2 (11:46)
[2018-01-23] MEDS ORDERED: Heparin 25,000 UNIT/500 ML D5W 25,000 UNIT/500 ML BAG IVC SCH (12:00)
[2018-01-23 12:08] LABS: Heparin anti-factor XA UFH 0.07 IU/mL (0.30-0.70)
[2018-01-23] MEDS ORDERED: Ondansetron 4 MG/2 ML VIAL IVP PRN (12:51)
[2018-01-23] MEDS ORDERED: Naloxone 0.4 MG/ML INJ IVP PRN (12:51)
[2018-01-23] MEDS ORDERED: Acetaminophen 325 MG TABLET PO PRN (12:54)
[2018-01-23] MEDS ORDERED: Ipratropium/Albuterol Neb 3 ML IH PRN (12:55)
--- NOTE | 2018-01-23 13:49 | Internal Med History&Physical ---
Date of Encounter: 01/23/18 Time of Encounter: 13:47 Internal Medicine - H&P: HPI Chief complaint: Worsening confusion Admitted From: Home Plans for Post Hospital Care: Home History of present illness: Ms. Kasper is a 77 year old female with medical history of COPD, chronic respiratory failure on oxygen at night, asthma, GERD. She was recently discharged from the hospital after being managed for worsening mental status and syncopal, workup at that time included an echocardiogram and brain MRI which were unremarkable. Patient likely also has dementia. She is brought into the ER by her spouse reports that in the past week patient has been having poor oral intake, has been very quiet and bedbound or rigidity, and complained of lethargy and chest pain. He reports that the patient is usually able to go to the bathroom and back and usually a week and activity during the day, but however in the past week, patient has been more lethargic, complaining of pain in her chest. The patient has so denies shortness of breath , she denies leg swelling she denies palpitations dizziness or diaphoresis. However, during evaluation the patient is diaphoretic and sweating excessively. SHe denied active chest pain at that time. The patient denies changes in urinary or bowel habits. She denies fever or chills. No nausea or vomiting. Workup in the ER. Acute kidney injury. Slightly elevated troponins, EKG with new T-wave inversions in V4 and V5. Complete blood count is unremarkable. Lipid panel from prior admission noted and unremarkable. CXR and Head CT unremarkable Cardiology was consulted for management of an STEMI and recommended starting on heparin drip. The patient has a living will and according to her spouse, she is full code. Past Med Surg Social Fam HX - Past Medical History Medical history: arthritis, asthma, cancer, COPD, GERD, seizures Additional medical history: Skin cancer Psychiatric history: no psych history - Past Surgical History Surgical History: appendectomy, cholecystectomy, colectomy, herniorrhaphy, hysterectomy, orthopedic, other, splenectomy, HAMMAD/BSO Additional surgical history: R-SHOULDER REPLACED, L-SHOULDER BALL & LIGAMENTS, 1 /2 STOMACH & INTESTINES, REMOVED, HERNIA REPAIR, Bladder tuck - Social History Smoking Status: Former smoker Smokeless Tobacco Status: No Alcohol use: none Drug use: none - Family History Mother Living Status: Hx Family Cardiac Disorders: Yes Internal Medicine - H&P: Meds Albuterol Sulfate [Proair Hfa] 2 puff IH Q4H PRN 03/15/16 [History] Alendronate Sodium [Fosamax] 70 mg PO MO 03/15/16 [History] Budesonide/Formoterol 160/4.5 [Symbicort 160/4.5] 2 puff IH BID 03/15/16 [ History] Cholecalciferol (Vitamin D3) [Vitamin D3] 1,000 unit PO DAILY 03/15/16 [History] FLUoxetine HCl [Prozac] 40 mg PO HS 03/15/16 [History] Ferrous Sulfate [Iron] 325 mg PO DAILY 03/15/16 [History] Furosemide [Lasix] 40 mg PO DAILY 03/15/16 [History] Ipratropium/Albuterol Neb [Duoneb] 3 ml IH QID PRN 03/15/16 [History] Montelukast [Singulair] 10 mg PO DAILY 03/15/16 [History] Omalizumab [XOLAIR (For Outpatient Infusion)] 150 mg IJ QMONTH 03/15/16 [History ] Omeprazole [PriLOSEC] 40 mg PO DAILY 03/15/16 [History] Oxygen 3 - 4 l NS AD 03/15/16 [History] Acetaminophen [Acetaminophen ER] 650 mg PO BID PRN 01/08/18 [History] EPINEPHrine [Epipen] 0.3 mg IJ ONCE PRN 01/08/18 [History] Losartan/HCTZ [Hyzaar 50-12.5 Tablet] 1 tab PO DAILY 01/08/18 [History] Multivit-Min/Iron/Folic/Lutein [Centrum Silver Women Tablet] 1 tab PO DAILY [History] predniSONE [PredniSONE] 10 mg PO DAILY #55 tablet 01/10/18 [Rx] 3 Allergy/AdvReac Type Severity Reaction Status Date / Time ibandronate sodium Allergy Hives Verified 01/23/18 10:28 [From [place]] latex Allergy Hives Verified 01/23/18 10:28 Penicillins Allergy Anaphylaxis Verified 01/23/18 10:28 Sulfa (Sulfonamide Allergy Anaphylaxis Verified 01/23/18 10:28 Antibiotics) Tetanus Vaccines and Toxoid Allergy Hives Verified 01/23/18 10:28 [Tetanus Vaccines & Toxoid] tiotropium Allergy Hives Verified 01/23/18 10:28 [From Spiriva with HandiHaler] codeine AdvReac Confusion Verified 01/23/18 10:28 estradiol AdvReac unknown Verified 01/23/18 10:28 per patient morphine AdvReac Confusion Verified 01/23/18 10:28 All Systems PM: A 10-system review of systems was performed and is negative for pertinent findings except as documented above in the HPI. - Constitutional Constitutional: anorexia, no chills, no fever(s) - EENT Eyes: no change in vision, no discharge, no pain, no photophobia Ears: no ear discharge, no ear pain, no tinnitus Nose, mouth and throat: no dysphagia, no nasal discharge, no neck pain, no sore throat - Cardiovascular Cardiovascular ROS IM: chest pain, diaphoresis - Respiratory Respiratory: no cough, no dyspnea, no wheezing, no excessive phlegm production - Gastrointestinal Gastrointestinal: no abdominal pain, no diarrhea, no hematemesis, no hematochezia, no melena, no nausea, no vomiting - Genitourinary Genitourinary: no change in urinary stream, no dysuria, no flank pain, no hematuria - Musculoskeletal Musculoskeletal ROS IM: no numbness, no tingling - Integumentary Integumentary IM: no rash, no unusual bruising - Neurological Neurological ROS: confusion, weakness - Hematologic/Lymphatic Hematologic/Lymphatic: no easy bruising - Constitutional Vitals: Temp Pulse Resp BP Pulse Ox 98.1 F 97 20 131/77 94 01/23/18 10:40 01/23/18 12:00 01/23/18 12:00 01/23/18 12:00 01/23/18 12:00 General appearance: Present: A&O X 3, pleasant, no acute distress - Head Head exam: Present: atraumatic, normocephalic - Eye Eye exam: Present: PERRL, conjuntiva pink, sclera anicteric Pupils: Present: PERRL - Neck Neck exam general surgery: Present: supple, trachea midline. Absent: lymphadenopathy - Respiratory Respiratory exam: Present: CTAB. Absent: accessory muscle use, rales, rhonchi, wheezes - Cardiovascular Cardiovascular exam: Present: RRR, +S1, +S2. Absent: diastolic murmur, gallop, rubs, systolic murmur - GI/Abdominal GI/Abdominal exam: Present: normal bowel sounds, soft, no peritoneal signs. Absent: distended, tenderness - Extremities Exam Extremities exam: Present: warm, radial pulses palpable and symmetrical. Absent : calf tenderness, cyanotic, pedal edema - Neurological Exam Neurological exam: Present: alert, CN II-XII intact, oriented X3, no focal deficits. Absent: pronater drift, facial droop, speech deficit - Skin Skin exam: Present: dry, intact Internal Med - H&P Results - Labs CBC & Chem 7: 01/23/18 10:54 01/23/18 10:54 - Assessment and plan (1) ZEKE (acute kidney injury) Current Visit: Yes Status: Acute Assessment and plan: Likely pre-renal Patient's spouse reports poor oral intake in the past week She is also on lasix/HCTZ/Losartan Hold lasix/Losartan/HCTZ IVF hydration 75cc/hr Strict I/Os REnal USS Avoid nephrotoxins Monitor chem a.m (2) NSTEMI (non-ST elevated myocardial infarction) Current Visit: Yes Status: Suspected Assessment and plan: suspected Initial trop 0.04 Cycle troponin ECHO from admission 12/2017 showed LVEF 65-70%, will not repeat unless indicated by cardiology Patient does report chest pain, and lethargy EKG with TWI in V4 and V5 which are new Started on heparin drip per cardio from ER Continue same ASA, BB , lipitor started On ARB at home, held due to ZEKE Lipid panel from last admission noted-LDL 78, HDL 28 Cardiology has been consulted and called by ER (3) Encephalopathy acute Current Visit: Yes Status: Acute Assessment and plan: lkely due to ZEKE and dehydration Suspect it may be progression of patient's dementia Patient is AAOX3 at [facility] But spouse states patient was more "quiet " and bed bound all week (4) COPD (chronic obstructive pulmonary disease) Current Visit: Yes Status: Chronic Assessment and plan: Not in exacerbation at this time Duonebs prn Continue home steroids Qualifiers: COPD type: unspecified COPD Qualified Code(s): J44.9 - Chronic obstructive pulmonary disease, unspecified (5) DVT prophylaxis Current Visit: Yes Status: Acute Assessment and plan: On heparin infusion (6) Asthma Current Visit: Yes Status: Chronic Assessment and plan: Continue home medications. Patient is also on omalizumab shot every month, continue as out-patient Qualifiers: Asthma severity: unspecified severity Asthma persistence: persistent Asthma complication type: uncomplicated Qualified Code(s): J45.909 - Unspecified asthma, uncomplicated (7) Chronic respiratory failure Current Visit: Yes Status: Chronic Assessment and plan: Patient is on chronic Home O2 Qualifiers: Respiratory failure complication: hypoxia Qualified Code(s): J96.11 - Chronic respiratory failure with hypoxia (8) GERD (gastroesophageal reflux disease) Current Visit: Yes Status: Chronic Assessment and plan: continue home meds Qualifiers: Esophagitis presence: esophagitis presence not specified Qualified Code(s) : K21.9 - Gastro-esophageal reflux disease without esophagitis - Time Spent With Patient Total time spent is greater than 50% in coordination of care (as documented) at patient's floor/unit and/or counseling patient:
[2018-01-23] MEDS: 0.9 % Sodium Chloride 1,000 ML IVC SCH (14:18)
--- NOTE | 2018-01-23 14:52 | Electrocardiograph Report ---
[facility] [employer] Test Date: 2018-01-23 Pat Name: Kate Kasper Department: 102 Room: 2A62 Gender: F Rn Postpartum: Krysten : 1940 Requested By: Ronny Alicea Order Number: [id number] Reading MD: Chemo Davidson Measurements Intervals [place] Rate: 91 P: 68 MD: 168 QRS: 23 QRSD: 105 T: 137 QT: 356 QTc: 405 Interpretive Statements SINUS RHYTHM WITH OCCASIONAL SUPRAVENTRICULAR PREMATURE COMPLEXES PROBABLE INFERIOR MYOCARDIAL INFARCTION [35 ms Q WAVE IN II/aVF], OF INDETERMINATE AGE MODERATE T-WAVE ABNORMALITY, CONSIDER LATERAL ISCHEMIA [-0.1+ mV T WAVE IN I/aVL/V5/V6] Electronically Signed On 01-23-2018 14:51:11 EDT by Chemo Davidson
[2018-01-23] MEDS: Budesonide/Formoterol 160/4.5 MDI IH SCH (20:04)
[2018-01-23] MEDS: FLUoxetine 20 MG CAPSULE PO SCH (21:59)
[2018-01-24] MEDS: 0.9 % Sodium Chloride 1,000 ML IVC SCH (03:15)
[2018-01-24 04:44] LABS: Basophils % 0.2 %; Eosinophils % 0.2 %; Hemoglobin 12.5 g/dL (11.5-15.4); Immature Granulocytes % 0.5 % (0-4); Lymphocytes # 2.7 K/mcL (0.6-4.6); Lymphocytes % 21.5 %; Mean Corpuscular HGB Conc 34.7 g/dL (31.6-35.5); Mean Corpuscular Hemoglobin 32.1 pg (28.0-33.3); Mean Corpuscular Volume 92.3 fL (83.0-100.0); Mean Platelet Volume 9.6 fL (9.4-12.4); Monocytes # 1.2 K/mcL (0.0-1.3); Monocytes % 9.5 %; Neutrophils # 8.7 K/mcL (1.6-8.9); Platelet Count 287 K/mcL (140-400); Red Cell Distribution Width 14.9 % (11.5-14.5); Segmented Neutrophils % 68.1 %
[2018-01-24 05:04] LABS: BUN/Creatinine Ratio 26 (6-26); Blood Urea Nitrogen 25 mg/dL (8-23); Carbon Dioxide 32 mEq/L (23-29); Chloride 90 mEq/L (98-107); Chol/HDL Ratio 2.1 (0-4.9); Cholesterol 237 mg/dL (< 200); Glucose 132 mg/dL (70-105); HDL Cholesterol 113 mg/dL (40-59); LDL Cholesterol,Calculated 97 mg/dL (0-99); Osmolality,Calculated 284 (280-300); Sodium 134 mEq/L (136-145); Triglycerides 135 mg/dL (< 150); eGFR For African Americans > 60 (> 60); eGFR For Non-African Americans 55 (> 60)
[2018-01-24] MEDS ORDERED: Potassium Chloride 20 MEQ, Lidocaine 1% 2 ML in D5% in Water 250 ML IVPB ONE (07:30)
[2018-01-24] MEDS: Budesonide/Formoterol 160/4.5 MDI IH SCH ×2 (07:43→21:13)
[2018-01-24] MEDS ORDERED: predniSONE 10 MG TABLET PO SCH ×2 (09:00)
--- NOTE | 2018-01-24 09:18 | Cardiology Consult Note ---
<Marisela Montes Bria - Last Filed: 01/24/18 10:27> Date of Encounter: 01/24/18 Time of Encounter: 09:00 Assessment and Plan (1) Elevated troponin Current Visit: Yes Status: Acute Mild adynamic troponin elevation in the setting of ZEKE. Troponin 0.04, 0.05, 0.05, 0.04. Atypical/typical chest pain described. Ischemic (lateral) ECG changes present. 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 TTE 01/11/18: LVEF 65-70%, normal wall motion. Chest is reproducible upon exam today; however, reports typical chest pain symptoms over the past several months and also ECG changes are concerning. Continue heparin gtt, asa, statin, and BB. Recommend LHC with possible PCI; however patient adamantly refuses. Will re- evaluate later today. Will continue to follow. (2) ZEKE (acute kidney injury) Current Visit: Yes Status: Acute Resolved after IVF Discussion w patient/family: The assessment and plan as outlined above was discussed with the patient and/or family members who expressed understanding and agreement. All questions were answered. Thank you for involving us in the care of your patient. Please call with any questions. The patient will be discussed and reviewed with Dr. Frederick; changes to be made accordingly. History of Present Illness Consult date: 01/24/18 Requesting physician: Gabriel Weber Consult reason: Elevated troponin Chief complaint: AMS History of present illness: Ms. Kasper is a 77 year old female with PMHx significant for HTN, COPD, GERD, and syncope who presented to the ED with reported worsening mental status changes and chest pain. History is mostly obtained from as patient as patient is confused at times. He reports recently hospitalization at the end of December for worsening confusion, falls, and reported syncopal episodes--found to be secondary to UTI, COPD exacerbation per documentation. reports poor po intake (eating/drinking) over the past week and worsening confusion which prompted ED evaluation. He also reports patient complaints of intermittent chest discomfort. She describes pain as midsternal with radiation to neck. Also reports worsening shortness of breath over the past several months. Upon arrival to ED, SCr was 1.59--now normalized s/p IVF. Troponin was mildly elevated at 0.04. There are lateral ECG changes which are new compared to previous. WBC elevated, now downtrending. Past Med Surg Social Fam HX - Past Medical History Attestation: Yes The following information was validated with the patient. Source: patient Medical history: arthritis, asthma, cancer, COPD, GERD, seizures Additional medical history: Skin cancer Psychiatric history: no psych history - Past Surgical History Surgical History: appendectomy, cholecystectomy, colectomy, herniorrhaphy, hysterectomy, orthopedic, other, splenectomy, HAMMAD/BSO Additional surgical history: R-SHOULDER REPLACED, L-SHOULDER BALL & LIGAMENTS, 1 /2 STOMACH & INTESTINES, REMOVED, HERNIA REPAIR, Bladder tuck - Social History Smoking Status: Former smoker Smokeless Tobacco Status: No Alcohol use: none Drug use: none - Family History Mother Living Status: Hx Family Cardiac Disorders: Yes Medications and Allergies Albuterol Sulfate [Proair Hfa] 2 puff IH Q4H PRN 03/15/16 [History] Alendronate Sodium [Fosamax] 70 mg PO MO 03/15/16 [History] Budesonide/Formoterol 160/4.5 [Symbicort 160/4.5] 2 puff IH BID 03/15/16 [ History] Cholecalciferol (Vitamin D3) [Vitamin D3] 1,000 unit PO DAILY 03/15/16 [History] FLUoxetine HCl [Prozac] 40 mg PO HS 03/15/16 [History] Ferrous Sulfate [Iron] 325 mg PO DAILY 03/15/16 [History] Furosemide [Lasix] 40 mg PO DAILY 03/15/16 [History] Ipratropium/Albuterol Neb [Duoneb] 3 ml IH QID PRN 03/15/16 [History] Montelukast [Singulair] 10 mg PO DAILY 03/15/16 [History] Omalizumab [XOLAIR (For Outpatient Infusion)] 150 mg IJ QMONTH 03/15/16 [History ] Omeprazole [PriLOSEC] 40 mg PO DAILY 03/15/16 [History] Oxygen 3 - 4 l NS AD 03/15/16 [History] Acetaminophen [Acetaminophen ER] 650 mg PO BID PRN 01/08/18 [History] EPINEPHrine [Epipen] 0.3 mg IJ ONCE PRN 01/08/18 [History] Losartan/HCTZ [Hyzaar 50-12.5 Tablet] 1 tab PO DAILY 01/08/18 [History] Multivit-Min/Iron/Folic/Lutein [Centrum Silver Women Tablet] 1 tab PO DAILY [History] predniSONE [PredniSONE] 10 mg PO DAILY #55 tablet 01/10/18 [Rx] 3 Allergy/AdvReac Type Severity Reaction Status Date / Time ibandronate sodium Allergy Hives Verified 01/23/18 10:28 [From Boniva] latex Allergy Hives Verified 01/23/18 10:28 Penicillins Allergy Anaphylaxis Verified 01/23/18 10:28 Sulfa (Sulfonamide Allergy Anaphylaxis Verified 01/23/18 10:28 Antibiotics) Tetanus Vaccines and Toxoid Allergy Hives Verified 01/23/18 10:28 [Tetanus Vaccines & Toxoid] tiotropium Allergy Hives Verified 01/23/18 10:28 [facility] codeine AdvReac Confusion Verified 01/23/18 10:28 estradiol AdvReac unknown Verified 01/23/18 10:28 per patient morphine AdvReac Confusion Verified 01/23/18 10:28 All Systems Review: The remainder of the systems were reviewed and are negative - Cardiovascular Cardiovascular: as per HPI Physical Examination Vital Signs, Last 4 Hours Temp Pulse Resp BP Pulse Ox 01/24/18 07:44 16 95 01/24/18 06:34 98.6 F 76 16 149/83 96 General: Conversant HEENT: Atraumatic, Normocephaly Cardiac: Reg Rate and Rhythm, Normal S1 and S2 Lungs: Normal Breath Sounds Neuro: Alert and responsive (to self, location) Abdomen: Soft Skin: No rashes noted on visualized skin Musculoskeletal: No Chest Wall Tenderness Extremities: No Edema, Normal Pulses Results 01/24/18 04:10 01/24/18 04:10 Lab Results 01/23/18 01/23/18 01/24/18 16:40 22:25 04:10 WBC 12.7 H Hgb 12.5 D Hct 36.0 Plt Count 287 Sodium Potassium Chloride Carbon Dioxide BUN Creatinine Glucose Calcium Troponin I 0.05 H* 0.05 H* 01/24/18 01/24/18 04:10 04:10 WBC Hgb Hct Plt Count Sodium 134 L Potassium 3.0 L Chloride 90 L Carbon Dioxide 32 H BUN 25 H Creatinine 0.98 Glucose 132 H Calcium 9.0 Troponin I 0.04 H* Active Medications Acetaminophen (Tylenol) 650 mg PO Q6HR PRN PRN Reason: Mild Pain Stop: 07/25/18 12:55 Albuterol/Ipratropium (Duoneb) 3 ml IH QID PRN PRN Reason: Shortness Of Breath Stop: 07/25/18 12:56 Aspirin (Aspirin Ec) 81 mg PO DAILY [facility] Stop: 07/26/18 09:01 Atorvastatin Calcium (Lipitor) 40 mg PO HS [facility] Stop: 07/25/18 21:01 Last Admin: 01/23/18 21:59 Dose: 40 mg Budesonide/Formoterol Fumarate (Symbicort) 2 puff IH BIDRESP SMITH PRN Reason: Protocol Stop: 07/25/18 22:01 Last Admin: 01/24/18 07:43 Dose: 2 puff Ferrous Sulfate (Ferrous Sulfate) 325 mg PO DAILY@0800 [facility] Stop: 07/26/18 08:01 Fluoxetine HCl (Prozac) 40 mg PO HS [facility] Stop: 07/25/18 21:01 Last Admin: 01/23/18 21:59 Dose: 40 mg Heparin Sodium (Porcine) (Heparin) 3,400 unit 60 unit/kg (3400 unit) IVP Q6HR PRN PRN Reason: SEE COMMENTS Stop: 07/25/18 11:47 Heparin Sodium (Porcine) (Heparin) 1,700 unit 30 unit/kg (1700 unit) IVP Q6H PRN PRN Reason: SEE COMMENTS Stop: 07/25/18 11:47 Heparin Sodium/Dextrose (Heparin 25,000 Unit/500 Ml D5w) 25,000 unit in 500 mls @ 13.608 mls/hr IVC .Q24H SMITH; 12 UNIT/KG/HR PRN Reason: Protocol Stop: 07/25/18 12:01 Last Titration: 01/24/18 02:25 Dose: 6.7 unit/kg/hr, 7.6 mls/hr Potassium Chloride/Sodium Chloride (Kcl 20 Meq In 0.9% Sodium Chloride) 20 meq in 1,000 mls @ 75 mls/hr IVC .[id number] [facility] Stop: 07/26/18 07:31 Metoprolol Tartrate (Lopressor) 12.5 mg PO BID [facility] Stop: 07/25/18 21:01 Last Admin: 01/23/18 21:59 Dose: 12.5 mg Montelukast Sodium (Singulair) 10 mg PO DAILY [facility] Stop: 07/26/18 09:01 Multivitamins/Calcium (Thera M Plus) 1 tab PO DAILY [facility] Stop: 07/26/18 09:01 Naloxone HCl (Narcan) 0.4 mg IVP Q2MIN PRN PRN Reason: SEE COMMENTS Stop: 07/25/18 12:52 Omeprazole (Prilosec) 40 mg PO DAILY@0630 [facility] Stop: 07/26/18 06:31 Last Admin: 01/24/18 06:28 Dose: 40 mg Ondansetron HCl (Zofran) 4 mg IVP Q8HR PRN PRN Reason: Nausea And Vomiting Stop: 07/25/18 12:52 Prednisone (Prednisone) 10 mg PO DAILY [facility] Stop: 07/26/18 09:01 Vitamin D (Vitamin D) 1,000 unit PO DAILY [facility] Stop: 07/26/18 09:01 - Imaging and Cardiology Stress Test: report reviewed Echo: report reviewed - EKG Interpretation EKG results cardiology: personally reviewed Consult Discharge Plan - Plan Referrals: Gualberto Coto MD [Primary Care Provider] - <Osiel Frederick - Last Filed: 01/24/18 16:03> Date of Encounter: 01/24/18 - Attending Attestation I have personally performed a face to face evaluation on this patient. I have reviewed and agree with the care plan. History and Exam by me shows: Atypical chest pain EKG changes suggestive of ischemia Patient refuses [facility] Assessment and Plan Discussion w patient/family: The assessment and plan as outlined above was discussed with the patient and/or family members who expressed understanding and agreement. All questions were answered. Thank you for involving us in the care of your patient. Please call with any questions. History of Present Illness History of present illness: Ms. Kasper is a 77 year old female All Systems Review: The remainder of the systems were reviewed and are negative Physical Examination Vital Signs, Last 4 Hours Temp Pulse Resp BP Pulse Ox 01/24/18 15:51 97.9 F 65 18 135/74 99 Results 01/24/18 04:10 01/24/18 04:10 Lab Results 01/23/18 01/23/18 01/24/18 16:40 22:25 04:10 WBC 12.7 H Hgb 12.5 D Hct 36.0 Plt Count 287 Sodium Potassium Chloride Carbon Dioxide BUN Creatinine Glucose Calcium Troponin I 0.05 H* 0.05 H* 01/24/18 01/24/18 04:10 04:10 WBC Hgb Hct Plt Count Sodium 134 L Potassium 3.0 L Chloride 90 L Carbon Dioxide 32 H BUN 25 H Creatinine 0.98 Glucose 132 H Calcium 9.0 Troponin I 0.04 H*
[2018-01-24] MEDS: Aspirin Enteric Coated 81 MG Tablet PO SCH (10:07)
[2018-01-24] MEDS: Cholecalciferol (D-3) 1,000 UNIT TABLET PO SCH (10:07)
[2018-01-24] MEDS: Multivit/Ca/Min/Fe/FA 1 TAB TABLET PO SCH (10:08)
[2018-01-24] MEDS: 0.9 % Sodium Chloride w KCl 20 MEQ/1,000 ML MLS IVC SCH (12:37)
--- NOTE | 2018-01-24 13:06 | Internal Med Progress Note ---
Date of Encounter: 01/24/18 Time of Encounter: 13:04 - Assessment and plan (1) NSTEMI (non-ST elevated myocardial infarction) Current Visit: Yes Status: Suspected Assessment and plan: Troponins trended down. Cardiology evaluated patient. Recommend left heart catheterization given EKG changes and chest pain. However patient not wanting to undergo this procedure at this time. Patient keeps repeating that she does not want to undergo any procedure at this time and wishes to and donate her body. She is awake alert and oriented. Discussed further goals of care and offered palliative care consult. Patient and family willing to discuss this. We will consult palliative care team to address this further. (2) Asthma Current Visit: Yes Status: Chronic Assessment and plan: Continue bronchodilators as needed Qualifiers: Asthma severity: unspecified severity Asthma persistence: persistent Asthma complication type: uncomplicated Qualified Code(s): J45.909 - Unspecified asthma, uncomplicated (3) GERD (gastroesophageal reflux disease) Current Visit: Yes Status: Chronic Assessment and plan: On omeprazole. Qualifiers: Esophagitis presence: esophagitis presence not specified Qualified Code(s) : K21.9 - Gastro-esophageal reflux disease without esophagitis (4) Chronic respiratory failure Current Visit: Yes Status: Chronic Assessment and plan: Continue O2 supplementation Qualifiers: Respiratory failure complication: hypoxia Qualified Code(s): J96.11 - Chronic respiratory failure with hypoxia (5) Encephalopathy acute Current Visit: Yes Status: Acute Assessment and plan: Improved. According to patient's she is been having issues with memory but presently is awake alert and oriented 3.CT of the head does not show any acute stroke or bleed but she does have diffuse atrophic changes (6) COPD (chronic obstructive pulmonary disease) Current Visit: Yes Status: Chronic Assessment and plan: On Symbicort, Duonebs Qualifiers: COPD type: unspecified COPD Qualified Code(s): J44.9 - Chronic obstructive pulmonary disease, unspecified (7) ZEKE (acute kidney injury) Current Visit: Yes Status: Acute Assessment and plan: Improved. Creatinine 0.98 (8) DVT prophylaxis Current Visit: Yes Status: Acute Assessment and plan: Patient on IV heparin (9) Hypokalemia Current Visit: Yes Status: Acute Assessment and plan: We will replete potassium - Time Spent With Patient Total time spent is greater than 50% in coordination of care (as documented) at patient's floor/unit and/or counseling patient: - Subjective Interval history: Patient reports mild chest discomfort. No shortness of breath. No palpitations. No fever or chills reported overnight. He was recommended left heart catheterization by cardiology but patient does not want to undergo this procedure at this time. - Constitutional Vitals: Temp Pulse Resp BP Pulse Ox 98.6 F 82 16 162/90 96 01/24/18 10:58 01/24/18 10:58 01/24/18 10:58 01/24/18 10:58 01/24/18 10:58 General appearance: Present: A&O X 3, pleasant, no acute distress - Neck Neck exam general surgery: Present: supple, trachea midline. Absent: lymphadenopathy - Respiratory Respiratory exam: Present: CTAB. Absent: accessory muscle use, rales, rhonchi, wheezes - Cardiovascular Cardiovascular exam: Present: RRR, +S1, +S2. Absent: diastolic murmur, gallop, rubs, systolic murmur - GI/Abdominal GI/Abdominal exam: Present: normal bowel sounds, soft, no peritoneal signs. Absent: distended, tenderness - Extremities Exam Extremities exam: Present: warm, radial pulses palpable and symmetrical. Absent : calf tenderness, cyanotic, pedal edema Internal Medicine: Result - Labs CBC & Chem 7: 01/24/18 04:10 01/24/18 04:10 Labs: Short CBC 01/24/18 Range/Units 04:10 WBC 12.7 H (4.3-11.1) K/mcL Hgb 12.5 D (11.5-15.4) g/dL Hct 36.0 (35.3-44.9) % Plt Count 287 (140-400) K/mcL Neutrophils # 8.7 (1.6-8.9) K/mcL BMP 01/24/18 04:10 Sodium 134 L Potassium 3.0 L Chloride 90 L Carbon Dioxide 32 H BUN 25 H Creatinine 0.98 Glucose 132 H Calcium 9.0 Cardiac Enzymes 01/23/18 01/23/18 01/24/18 Range/Units 16:40 22:25 04:10 Troponin I 0.05 H* 0.05 H* 0.04 H* (< 0.04) ng/mL - ABG Interpretation ABG results: PT/INR, D-dimer PT 9.9 Seconds (9.4-12.1) 01/23/18 10:54 - Impressions Impressions Retroperitoneum Ultrasound 01/23/18 19:30 IMPRESSION: 1. No hydronephrosis. 2. Mild diffuse bilateral renal parenchymal atrophy. D/ / Sonny Hall / Sonny Hall Interpreting Provider: Sonny Hall Consult Discharge Plan - Plan Referrals: Gualberto Coto MD [Primary Care Provider] -
[2018-01-24] MEDS ORDERED: MORPHINE SUL Oral CONC 10 MG/0.5 ML ORAL.SYG SL PRN (14:06)
[2018-01-24] MEDS ORDERED: *HR* LORazepam Oral Conc 2 MG/ML SL PRN (14:09)
--- NOTE | 2018-01-24 14:10 | Event Note ---
Date of Encounter: 01/24/18 Time of Encounter: 14:00 - Cardiology Event Note Patient continues to adamantly refuse LHC with possible PCI. She remains alert and oriented x3. also present during discussion. Palliative care following, patient is now DNR-CC. Will stop IV heparin gtt. Discussed and reviewed with Dr. Frederick.
--- NOTE | 2018-01-24 14:11 | Palliative - Consult Note ---
Date of Encounter: 01/24/18 Time of Encounter: 13:30 - Assessment and Plan (1) Chest pain due to myocardial ischemia Current Visit: Yes Status: Acute Assessment and plan: Patient reports "lots of" chest pain" unable to describe on pain scale or describe in detail, been going on "for a while." Reports "nothing helps." Ordered Oxycodone for chest pain. Patient recommend LHC by cardiology, patient refused. Family verbalized understanding of risk of future cardiac events by stopping heparin drip and transitioning to comfort care. , Jose, desires to follow patient's desires. Qualifiers: Ischemic chest pain type: unspecified angina pectoris type Qualified Code(s ): I25.9 - Chronic ischemic heart disease, unspecified (2) Chronic respiratory failure Current Visit: Yes Status: Chronic Assessment and plan: Patient oxygen 96% on room air. Denies dyspnea. Qualifiers: Respiratory failure complication: hypoxia Qualified Code(s): J96.11 - Chronic respiratory failure with hypoxia (3) Encephalopathy acute Current Visit: Yes Status: Acute Assessment and plan: Patient remains agitated/confused. Family following verbalized wishes to stop all treatment and transition to hospice care. Ordered Ativan PRN for anxiety/ agitation. (4) NSTEMI (non-ST elevated myocardial infarction) Current Visit: Yes Status: Suspected Assessment and plan: Cardiology recommendations appreciated. Family and patient refusing continued heparin drip and LHC; verbalized understanding of risk of further cardiac event. Family wishes for patient to be kept comfortable. (5) COPD (chronic obstructive pulmonary disease) Current Visit: Yes Status: Chronic Assessment and plan: Not in exacerbation at present time. Qualifiers: COPD type: unspecified COPD Qualified Code(s): J44.9 - Chronic obstructive pulmonary disease, unspecified (6) Elevated troponin Current Visit: Yes Status: Acute Assessment and plan: Cardiology work up appreciated. (7) Goals of care, counseling/discussion Current Visit: Yes Status: Acute Assessment and plan: Conducted family meeting with patient's , Jose [phone], daughters, Geovanna, , Sarah, [phone], Elif, , and son, Erick, , and Granddaughter, . Patient expressed desires to not complete further aggressive treatment. Family expressed desires to bring patient home with [facility] once agitation and pain under control. Notified Cherry at [facility] of transfer with DME needs of Bed, over the bed table, oxygen, wheelchair, walker, and BSC. Patient will need to be admitted at [facility] and have transportation home via ambulance. Spoke with Marisela Montes CNP Cardiology, regarding goals of care to withdraw care and keep patient comfortable then transition home with [facility] at time of discharge. Was informed cardiology has made 5 visits to room today to discuss LHC and patient refused at every attempt; cardiology will discontinue heparin drip. Palliative-CN HPI - Data of Consult Patient: new to practice Consult date: 01/24/18 Requesting Physician: Valencia Aparicio MD Primary Care Provider: Gualberto Coto MD - Consult Narrative Palliative Care/Comfort Measures: Palliative care Reason for consult: Goals of care; NSTEMI doesn't want heart cath History of present illness: Ms. Kasper is a 77 year old female Arrived to [facility] on 01/23/18 for AMS. PMH : COPD, chronic respiratory failure, asthma, GERD. Recently discharged from hospital and upon return worsening mentation. Patient admitted for ZEKE, NSTEMI , Acute encephalopathy, COPD, Asthma, Chronic Respiratory failure, and GERD. Initial troponins elevated and worsening, refused LHC that was recommended by cardiology. Upon arrival for assessment, patient resting in bed laying on left side reports chest pain, unable to rate on pain scale. Patient agitated during discussion of goals of care and requests multiple times to be allowed to be "let go" and "end this already." Family verbalized agreement with transition to hospice/ comfort care. Patient's family informed patient that euthanasia is not appropriate; however, they were willing to bring her home and keep her comfortable. Patient denies nausea and anxiety. CC: Valencia Aparicio MD Past Med Surg Social Fam HX - Past Medical History Medical history: arthritis, asthma, cancer, COPD, GERD, seizures Additional medical history: Skin cancer Psychiatric history: no psych history - Past Surgical History Surgical History: appendectomy, cholecystectomy, colectomy, herniorrhaphy, hysterectomy, orthopedic, other, splenectomy, HAMMAD/BSO Additional surgical history: R-SHOULDER REPLACED, L-SHOULDER BALL & LIGAMENTS, 1 /2 STOMACH & INTESTINES, REMOVED, HERNIA REPAIR, Bladder tuck - Social History Smoking Status: Former smoker Smokeless Tobacco Status: No Alcohol use: none Drug use: none - Family History Mother Living Status: Hx Family Cardiac Disorders: Yes Medications and Allergies Albuterol Sulfate [Proair Hfa] 2 puff IH Q4H PRN 03/15/16 [History] Alendronate Sodium [Fosamax] 70 mg PO MO 03/15/16 [History] Budesonide/Formoterol 160/4.5 [Symbicort 160/4.5] 2 puff IH BID 03/15/16 [ History] Cholecalciferol (Vitamin D3) [Vitamin D3] 1,000 unit PO DAILY 03/15/16 [History] FLUoxetine HCl [Prozac] 40 mg PO HS 03/15/16 [History] Ferrous Sulfate [Iron] 325 mg PO DAILY 03/15/16 [History] Furosemide [Lasix] 40 mg PO DAILY 03/15/16 [History] Ipratropium/Albuterol Neb [Duoneb] 3 ml IH QID PRN 03/15/16 [History] Montelukast [Singulair] 10 mg PO DAILY 03/15/16 [History] Omalizumab [XOLAIR (For Outpatient Infusion)] 150 mg IJ QMONTH 03/15/16 [History ] Omeprazole [PriLOSEC] 40 mg PO DAILY 03/15/16 [History] Oxygen 3 - 4 l NS AD 03/15/16 [History] Acetaminophen [Acetaminophen ER] 650 mg PO BID PRN 01/08/18 [History] EPINEPHrine [Epipen] 0.3 mg IJ ONCE PRN 01/08/18 [History] Losartan/HCTZ [Hyzaar 50-12.5 Tablet] 1 tab PO DAILY 01/08/18 [History] Multivit-Min/Iron/Folic/Lutein [Centrum Silver Women Tablet] 1 tab PO DAILY [History] predniSONE [PredniSONE] 10 mg PO DAILY #55 tablet 01/10/18 [Rx] 3 Allergy/AdvReac Type Severity Reaction Status Date / Time ibandronate sodium Allergy Hives Verified 01/23/18 10:28 [From [facility]] latex Allergy Hives Verified 01/23/18 10:28 Penicillins Allergy Anaphylaxis Verified 01/23/18 10:28 Sulfa (Sulfonamide Allergy Anaphylaxis Verified 01/23/18 10:28 Antibiotics) Tetanus Vaccines and Toxoid Allergy Hives Verified 01/23/18 10:28 [Tetanus Vaccines & Toxoid] tiotropium Allergy Hives Verified 01/23/18 10:28 [From [facility] with [facility]] codeine AdvReac Confusion Verified 01/23/18 10:28 estradiol AdvReac unknown Verified 01/23/18 10:28 per patient morphine AdvReac Confusion Verified 01/23/18 10:28 ROS unobtainable: due to mental status (Obtained from as patient was not in mood to discuss.) - Constitutional Constitutional ROS PAL: decreased appetite, lethargy, no frequent falls - Cardiovascular Cardiovascular ROS: chest pain, chest pain at rest, chest pain with activity, no dyspnea on exertion, no radiating pain - Respiratory Respiratory: cough, no dyspnea, no dyspnea on exertion - Gastrointestinal Gastrointestinal: no abdominal pain - Genitourinary Palliative ROS female: urinary incontinence - Integumentary ROS Integumentary: dry skin, no wounds - Neurological Neurological ROS: behavioral changes, confusion - Psychiatric Psychiatric general PM: anxiety, change in appetite, irritability Palliative Care-Exam - Constitutional Vitals: Temp Pulse Resp BP Pulse Ox 98.6 F 82 16 162/90 96 01/24/18 10:58 01/24/18 10:58 01/24/18 10:58 01/24/18 10:58 01/24/18 10:58 General appearance: Present: severe distress, thin. Absent: cooperative - Head Head Exam: Present: atraumatic, normal inspection - Expanded Head Exam Head exam expanded IM: Absent: raccoon eyes - Eye Eye exam: Present: normal appearance. Absent: periorbital swelling, periorbital tenderness - ENT ENT exam: Present: mucous membranes dry, normal external ear exam - Expanded ENT Exam Mouth Exam: Absent: drooling - Neck Neck exam: Present: full ROM, normal inspection - Respiratory Respiratory exam: Present: CTAB. Absent: accessory muscle use, respiratory distress, wheezes - Cardiovascular Cardiovascular exam: Present: RRR, +S1, +S2 - Expanded Cardiovascular Exam Peripheral pulses: 2+: Radial (L), Radial (R), Posterior Tibialis (L), Posterior Tibialis (R), Dorsalis Pedis (L) PM, Dorsalis Pedis (R) PM - GI/Abdominal Exam GI/Abdominal exam: Present: soft. Absent: tenderness - Rectal Rectal exam: Present: deferred - Neurological Exam Neurological exam: Present: alert, altered. Absent: oriented X3 - Expanded Neurological Exam Coma Scale Eye Opening: To Voice Coma Scale Motor Response: Localizes to Pain Coma Scale Verbal Response: Confused Coma Scale Total: 12 - Psychiatric Psychiatric exam: Present: agitated, anxious, flat affect. Absent: normal affect, normal mood Internal Medicine - CN: Reslt - Labs CBC & Chem 7: 01/24/18 04:10 01/24/18 04:10 Labs: Short CBC 01/24/18 Range/Units 04:10 WBC 12.7 H (4.3-11.1) K/mcL Hgb 12.5 D (11.5-15.4) g/dL Hct 36.0 (35.3-44.9) % Plt Count 287 (140-400) K/mcL Neutrophils # 8.7 (1.6-8.9) K/mcL BMP 01/24/18 04:10 Sodium 134 L Potassium 3.0 L Chloride 90 L Carbon Dioxide 32 H BUN 25 H Creatinine 0.98 Glucose 132 H Calcium 9.0 Cardiac Enzymes 01/23/18 01/23/18 01/24/18 Range/Units 16:40 22:25 04:10 Troponin I 0.05 H* 0.05 H* 0.04 H* (< 0.04) ng/mL - ABG Interpretation ABG results: PT/INR, D-dimer PT 9.9 Seconds (9.4-12.1) 01/23/18 10:54 - Impressions Impressions Retroperitoneum Ultrasound 01/23/18 19:30 IMPRESSION: 1. No hydronephrosis. 2. Mild diffuse bilateral renal parenchymal atrophy. D/ / Sonny Hall / Sonny Hall Interpreting Provider: Sonny Hall Consult Discharge Plan - Plan Referrals: Gualberto Coto MD [Primary Care Provider] - Palliative Quality Palliative Quality: Screen for Code Status: Yes, Screen for Goals of Care: Yes, Screen for Pain: Yes, If Pain Regimen Started, Initiate Bowel Regimen: Yes, Screen for Nausea/Vomitting: Yes Code Status: 01/24/18 14:05 DNR [Resuscitation Status: Active] [RES] Routine Comment: State form completed. Resuscitation Status: DNR-Comfort Care
[2018-01-24] MEDS ORDERED: Bisacodyl 10 MG RECTAL SUPPOSITORY RC PRN (14:27)
[2018-01-24] MEDS: OXYCODONE Oral CONC 10 MG/0.5 ML ORAL.SYG SL PRN (15:42)
[2018-01-24] MEDS: FLUoxetine 20 MG CAPSULE PO SCH (20:28)
[2018-01-25] MEDS: 0.9 % Sodium Chloride w KCl 20 MEQ/1,000 ML MLS IVC SCH (01:31)
[2018-01-25] MEDS: Budesonide/Formoterol 160/4.5 MDI IH SCH ×2 (08:00→20:20)
[2018-01-25] MEDS: Aspirin Enteric Coated 81 MG Tablet PO SCH (09:46)
[2018-01-25] MEDS: Cholecalciferol (D-3) 1,000 UNIT TABLET PO SCH (09:47)
[2018-01-25] MEDS: Multivit/Ca/Min/Fe/FA 1 TAB TABLET PO SCH (09:47)
[2018-01-25] MEDS: OXYCODONE Oral CONC 10 MG/0.5 ML ORAL.SYG SL PRN (09:47)
--- NOTE | 2018-01-25 09:50 | Palliative Progress Note ---
Date of Encounter: 01/25/18 Time of Encounter: 09:45 - Assessment and plan (1) Chest pain due to myocardial ischemia Current Visit: Yes Status: Acute Assessment and plan: Patient utilized Oxycodone x1 yesterday - is asking for this now. Notified primary nurse who is obtaining for patient. Qualifiers: Ischemic chest pain type: unspecified angina pectoris type Qualified Code(s ): I25.9 - Chronic ischemic heart disease, unspecified (2) Anxiety Current Visit: Yes Status: Acute Assessment and plan: Continue Lorazepam PRN. Has not utilized. Did discuss with her this is available if needed. She verbalized understanding (3) COPD with acute exacerbation Current Visit: No Status: Acute (4) Goals of care, counseling/discussion Current Visit: Yes Status: Acute Assessment and plan: D/W pt, at bedside. He has been contacted regarding bed delivery and it will be there later this afternoon. Patient/ very nervous about transporting home late in the day, and asking if she can go home tomorrow am. states that he is still speaking to her about heart cath, but thus far, she has still declined. Will continue to follow. - Time Spent With Patient Total time spent is greater than 50% in coordination of care (as documented) at patient's floor/unit and/or counseling patient: 25 - 35 minutes - Subjective Interval history: Patient awake and alert, sat up in chair few minutes this am. C/o chest pain and asking for Oxycodone. Ate all of breakfast and had large BM this am. at bedside. - Constitutional Vitals: Abnormal lab results WBC 12.7 K/mcL (4.3-11.1) H 01/24/18 04:10 RDW 14.9 % (11.5-14.5) H 01/24/18 04:10 APTT 18.4 Seconds (26.0-36.0) L 01/23/18 10:54 Sodium 134 mEq/L (136-145) L 01/24/18 04:10 Potassium 3.0 mEq/L (3.5-5.1) L 01/24/18 04:10 Chloride 90 mEq/L (98-107) L 01/24/18 04:10 Carbon Dioxide 32 mEq/L (23-29) H 01/24/18 04:10 BUN 25 mg/dL (8-23) H 01/24/18 04:10 Est GFR (Non-Af Amer) 55 (> 60) L 01/24/18 04:10 Glucose 132 mg/dL (70-105) H 01/24/18 04:10 Troponin I 0.04 ng/mL (< 0.04) H* 01/24/18 04:10 Cholesterol 237 mg/dL (< 200) H 01/24/18 04:10 HDL Cholesterol 113 mg/dL (40-59) H 01/24/18 04:10 Urine Clarity Cloudy (Clear) A 01/23/18 10:53 Ur Squamous Epith Cells Many per lpf (None-Few) H 01/23/18 10:53 General appearance: Present: mild distress, no acute distress - Respiratory Respiratory exam: Present: decreased breath sounds, CTAB - Cardiovascular Cardiovascular exam: Present: +S1, +S2 - GI/Abdominal GI/Abdominal exam: Present: normal bowel sounds, soft - Extremities Exam Extremities exam: Present: normal capillary refill, normal inspection - Neurological Exam Neurological exam: Present: alert, oriented X3, strengths equal and symetr throughout - Skin Skin exam: Present: dry, pallor, warm Palliative Quality Palliative Quality: Screen for Code Status: Yes, Screen for Goals of Care: Yes, Screen for Pain: Yes, If Pain Regimen Started, Initiate Bowel Regimen: Yes, Screen for Nausea/Vomitting: Yes Code Status: 01/23/18 12:51 Resuscitation Status: Active [RES] Routine Comment: Resuscitation Status: Full Code 01/24/18 14:05 DNR [Resuscitation Status: Active] [RES] Routine Comment: State form completed. Resuscitation Status: DNR-Comfort Care - Labs CBC & Chem 7: 01/24/18 04:10 01/24/18 04:10 - ABG Interpretation ABG results: PT/INR, D-dimer PT 9.9 Seconds (9.4-12.1) 01/23/18 10:54 Consult Discharge Plan - Plan Referrals: Gualberto Coto MD [Primary Care Provider] -
[2018-01-25] MEDS ORDERED: *HR* LORazepam Oral Conc 2 MG/ML SL PRN (12:19)
--- NOTE | 2018-01-25 14:19 | Internal Med Progress Note ---
Date of Encounter: 01/25/18 Time of Encounter: 11:00 - Assessment and plan (1) NSTEMI (non-ST elevated myocardial infarction) Current Visit: Yes Status: Acute Assessment and plan: Patient does not want left heart catheterization. Currently being managed conservatively. Transition to DNR comfort care. Palliative care arranging hospice. This should be arranged by tomorrow and patient will be discharged then. (2) Asthma Current Visit: Yes Status: Chronic Assessment and plan: Continue bronchodilators as needed. Qualifiers: Asthma severity: unspecified severity Asthma persistence: persistent Asthma complication type: uncomplicated Qualified Code(s): J45.909 - Unspecified asthma, uncomplicated (3) GERD (gastroesophageal reflux disease) Current Visit: Yes Status: Chronic Assessment and plan: Continue Prilosec Qualifiers: Esophagitis presence: esophagitis presence not specified Qualified Code(s) : K21.9 - Gastro-esophageal reflux disease without esophagitis (4) Chronic respiratory failure Current Visit: Yes Status: Chronic Assessment and plan: Continue O2 supplementation Qualifiers: Respiratory failure complication: hypoxia Qualified Code(s): J96.11 - Chronic respiratory failure with hypoxia (5) Encephalopathy acute Current Visit: Yes Status: Resolved Assessment and plan: Improved. Patient is awake alert and oriented 3 at this time (6) COPD (chronic obstructive pulmonary disease) Current Visit: Yes Status: Chronic Assessment and plan: continue bronchodilators as needed. Not in acute exacerbation Qualifiers: COPD type: unspecified COPD Qualified Code(s): J44.9 - Chronic obstructive pulmonary disease, unspecified (7) ZEKE (acute kidney injury) Current Visit: Yes Status: Resolved (8) DVT prophylaxis Current Visit: Yes Status: Acute (9) Hypokalemia Current Visit: Yes Status: Acute Assessment and plan: Repleted. - Time Spent With Patient Total time spent is greater than 50% in coordination of care (as documented) at patient's floor/unit and/or counseling patient: - Subjective Interval history: Patient reports that her chest pain is better controlled today. She was more calm and cooperative earlier this morning and told me that she does want heart left heart catheterization. However later in the day when palliative care doctor the patient more about what this would entail, she again reported that she does not want a left heart catheterization. She wishes to remain DNR comfort care and be discharged on hospice. Denies any shortness of breath. No palpitations. No fever or chills reported overnight. - Constitutional Vitals: Temp Pulse Resp BP Pulse Ox 98.1 F 70 19 144/71 95 01/25/18 11:45 01/25/18 11:45 01/25/18 11:45 01/25/18 11:45 01/25/18 11:45 General appearance: Present: A&O X 3, pleasant, no acute distress, answers questions appropriately - Neck Neck exam general surgery: Present: supple, trachea midline. Absent: lymphadenopathy - Respiratory Respiratory exam: Present: chest wall tenderness (Central), CTAB. Absent: accessory muscle use, rales, rhonchi, wheezes - Cardiovascular Cardiovascular exam: Present: RRR, +S1, +S2. Absent: diastolic murmur, gallop, rubs, systolic murmur - GI/Abdominal GI/Abdominal exam: Present: normal bowel sounds, soft, no peritoneal signs. Absent: distended, tenderness - Extremities Exam Extremities exam: Present: warm, radial pulses palpable and symmetrical. Absent : calf tenderness, cyanotic, pedal edema - Neurological Exam Neurological exam: Present: alert, no focal deficits. Absent: facial droop, speech deficit Internal Medicine: Result - Labs CBC & Chem 7: 01/24/18 04:10 01/24/18 04:10 - ABG Interpretation ABG results: PT/INR, D-dimer PT 9.9 Seconds (9.4-12.1) 01/23/18 10:54 Consult Discharge Plan - Plan Referrals: Gualberto Coto MD [Primary Care Provider] -
[2018-01-25] MEDS: FLUoxetine 20 MG CAPSULE PO SCH (21:54)
[2018-01-26] MEDS: Budesonide/Formoterol 160/4.5 MDI IH SCH (07:31)
--- NOTE | 2018-01-26 07:55 | Discharge Summary ---
- NOTES TO OUTPATIENT PROVIDER Notes to Outpatient Provider: Patient hospitalized here with chest pain and diagnosed with non-ST elevation AL. She did have EKG changes and slight jump in troponin. Evaluated by cardiology and recommended left heart catheterization. However patient did not want this procedure and wished to transition to a DNR comfort care and hospice. Palliative care was consulted and per their discussions with the family, patient will be discharged today home with hospice. Date of Encounter: 01/26/18 Time of Encounter: 07:52 - Discharge Diagnosis (1) NSTEMI (non-ST elevated myocardial infarction) Priority: Primary Status: Acute (2) Asthma Priority: Secondary Status: Chronic Qualifiers: Asthma severity: unspecified severity Asthma persistence: persistent Asthma complication type: uncomplicated Qualified Code(s): J45.909 - Unspecified asthma, uncomplicated (3) GERD (gastroesophageal reflux disease) Priority: Secondary Status: Chronic Qualifiers: Esophagitis presence: esophagitis presence not specified Qualified Code(s) : K21.9 - Gastro-esophageal reflux disease without esophagitis (4) Chronic respiratory failure Priority: Secondary Status: Chronic Qualifiers: Respiratory failure complication: hypoxia Qualified Code(s): J96.11 - Chronic respiratory failure with hypoxia (5) Encephalopathy acute Priority: Secondary Status: Resolved (6) COPD (chronic obstructive pulmonary disease) Priority: Secondary Status: Chronic Qualifiers: COPD type: unspecified COPD Qualified Code(s): J44.9 - Chronic obstructive pulmonary disease, unspecified (7) ZEKE (acute kidney injury) Priority: Secondary Status: Resolved (8) DVT prophylaxis Priority: Secondary Status: Acute (9) Hypokalemia Priority: Secondary Status: Acute Hospital course: Ms. Kasper is a 77 year old female Patient with a history of COPD, chronic respiratory failure on home oxygen, asthma and gastroesophageal reflux disease was hospitalized here with chest pain and diagnosed with non-ST elevation AL. She did have EKG changes and slight jump in troponin. She was Evaluated by cardiology and recommended left heart catheterization. However patient did not want this procedure and wished to transition to a DNR comfort care and hospice. Palliative care was consulted and per their discussions with the family, patient will be discharged today home with hospice. Discharge discussed with: patient, nurse, financial services consultant - Time Spent with Patient Total time spent providing and/or coordinating discharge services: Greater than 30 minutes (35 min) - Discharge Medications Prescriptions: LORazepam Oral Conc [Ativan Oral Conc] 0.5 mg SL Q4HR PRN 4 Days #10 mls PRN Reason: agitation/anxiety Aspirin Enteric Coated [Aspirin EC] 81 mg PO DAILY #30 tablet. Atorvastatin [Lipitor] 40 mg PO HS #30 tablet Losartan Potassium [Cozaar] 50 mg PO DAILY #30 tab Metoprolol [Lopressor] 12.5 mg PO BID #60 tablet OXYCODONE Oral CONC [Oxycodone Oral Conc] 5 mg PO Q3H PRN 4 Days #30 ml PRN Reason: Pain/Dyspnea Home Medications: Albuterol Sulfate [Proair Hfa] 2 puff IH Q4H PRN 03/15/16 [History] Alendronate Sodium [Fosamax] 70 mg PO MO 03/15/16 [History] Budesonide/Formoterol 160/4.5 [Symbicort 160/4.5] 2 puff IH BID 03/15/16 [ History] Cholecalciferol (Vitamin D3) [Vitamin D3] 1,000 unit PO DAILY 03/15/16 [History] FLUoxetine HCl [Prozac] 40 mg PO HS 03/15/16 [History] Ferrous Sulfate [Iron] 325 mg PO DAILY 03/15/16 [History] Furosemide [Lasix] 40 mg PO DAILY 03/15/16 [History] Ipratropium/Albuterol Neb [Duoneb] 3 ml IH QID PRN 03/15/16 [History] Montelukast [Singulair] 10 mg PO DAILY 03/15/16 [History] Omalizumab [XOLAIR (For Outpatient Infusion)] 150 mg IJ QMONTH 03/15/16 [History ] Omeprazole [PriLOSEC] 40 mg PO DAILY 03/15/16 [History] Oxygen 3 - 4 l NS AD 03/15/16 [History] Acetaminophen [Acetaminophen ER] 650 mg PO BID PRN 01/08/18 [History] EPINEPHrine [Epipen] 0.3 mg IJ ONCE PRN 01/08/18 [History] Multivit-Min/Iron/Folic/Lutein [Centrum Silver Women Tablet] 1 tab PO DAILY [History] predniSONE [PredniSONE] 10 mg PO DAILY #55 tablet 01/10/18 [Rx] Aspirin Enteric Coated [Aspirin EC] 81 mg PO DAILY #30 tablet. 01/26/18 [Rx] Atorvastatin [Lipitor] 40 mg PO HS #30 tablet 01/26/18 [Rx] LORazepam Oral Conc [Ativan Oral Conc] 0.5 mg SL Q4HR PRN 4 Days #10 mls [Rx] Losartan Potassium [Cozaar] 50 mg PO DAILY #30 tab 01/26/18 [Rx] Metoprolol [Lopressor] 12.5 mg PO BID #60 tablet 01/26/18 [Rx] OXYCODONE Oral CONC [Oxycodone Oral Conc] 5 mg PO Q3H PRN 4 Days #30 ml [Rx] Allergies/Adverse Reactions: 3 Allergy/AdvReac Type Severity Reaction Status Date / Time ibandronate sodium Allergy Hives Verified 01/23/18 10:28 [From [facility]] latex Allergy Hives Verified 01/23/18 10:28 Penicillins Allergy Anaphylaxis Verified 01/23/18 10:28 Sulfa (Sulfonamide Allergy Anaphylaxis Verified 01/23/18 10:28 Antibiotics) Tetanus Vaccines and Toxoid Allergy Hives Verified 01/23/18 10:28 [Tetanus Vaccines & Toxoid] tiotropium Allergy Hives Verified 01/23/18 10:28 [facility] codeine AdvReac Confusion Verified 01/23/18 10:28 estradiol AdvReac unknown Verified 01/23/18 10:28 per patient morphine AdvReac Confusion Verified 01/23/18 10:28 Date of admission: 01/23/18 12:17 Primary care physician: Gualberto Coto MD Consults: 01/23/18 14:35 Consult to Nutrition [CONS] Routine Comment: Consulting Provider: NUTRITION Reason for Dietary Consult: MST Score 01/23/18 19:42 Consult to [employer] [CONS] Routine Reason for SW Consult: dannie lambertc, [place] o2, spouse needs more help at home with pt. 01/24/18 10:16 Consult to Occupational Therapy [CONS] Routine Comment: Evaluate, develop and implement POC Reason for Consult: eval for poss ecf, may need pre-cert Does patient have active BEDREST order?: No Is patient medically & hemodynamically stable?: Yes Consult to Physical Therapy [CONS] Routine Comment: Evaluate, develop and implement POC Reason for Consult: eval for poss ecf, may need pre-cert Does patient have active BEDREST order?: No Is patient medically & hemodynamically stable?: Yes 01/24/18 11:39 Consult to Palliative Care [CONS] Routine Comment: Consulting Provider: Palliative Care Millie Reason for Consult: Goals of care; NSTEMI doesn't want heart cath; Time Notified: 11:40 Call Completed: Yes Discharging clinician: Valencia Aparicio Anticipated date of discharge: 01/26/18 - Constitutional Vitals: Temp Pulse Resp BP Pulse Ox 98.5 F 74 15 160/96 97 01/26/18 04:14 01/26/18 04:14 01/26/18 04:14 01/26/18 04:14 01/26/18 04:14 General appearance: Present: A&O X 3, pleasant, no acute distress, answers questions appropriately - Respiratory Respiratory exam: Present: CTAB. Absent: accessory muscle use, rales, rhonchi, wheezes - Cardiovascular Cardiovascular exam: Present: RRR, +S1, +S2. Absent: diastolic murmur, gallop, rubs, systolic murmur - Extremities Exam Extremities exam: Present: warm, radial pulses palpable and symmetrical. Absent : calf tenderness, cyanotic, pedal edema - Patient Status Disposition: Hospice - Home Condition: Good Functional capacity at discharge: wheelchair bound Overall status at discharge: other (patient being transitioned to hospice) - Discharge Instructions Instructions: Myocardial Infarction (DC), Chronic Obstructive Pulmonary Disease (DC) Follow Up With: Gualberto Coto MD [Primary Care Provider] - (in 1 week) - Diet and Activity Activity: increase activity as tolerated Diet: low fat, low cholesterol, low salt diet
[2018-01-26 08:03] VITALS: BP 165/90
--- NOTE | 2018-01-26 08:20 | Physician Discharge Referral ---
Home Health/Hosp Referral Info Transfer to: Hospice Provider in Charge Post Discharge: PCP - Diagnosis (1) NSTEMI (non-ST elevated myocardial infarction) Priority: Primary Status: Acute (2) Asthma Priority: Secondary Status: Chronic (3) GERD (gastroesophageal reflux disease) Priority: Secondary Status: Chronic (4) Chronic respiratory failure Priority: Secondary Status: Chronic (5) Encephalopathy acute Priority: Secondary Status: Resolved (6) COPD (chronic obstructive pulmonary disease) Priority: Secondary Status: Chronic (7) ZEKE (acute kidney injury) Priority: Secondary Status: Resolved (8) DVT prophylaxis Priority: Secondary Status: Acute (9) Hypokalemia Priority: Secondary Status: Acute - Respiratory Orders Smoking Cessation: Smoking cessation has been advised. For more information, call the [place] Tobacco Quit Line at 7-306-YAFR-NOW. - Diet/Nutrition Diet/Nutrition Orders: Cardiac - Activity Activity Orders: Walker - Services Needed Following services are medically necessary services: Nursing, Home Health Aide, Med Social Work - Transfer Medications Prescriptions: Aspirin Enteric Coated [Aspirin EC] 81 mg PO DAILY #30 tablet. Atorvastatin [Lipitor] 40 mg PO HS #30 tablet Losartan Potassium [Cozaar] 50 mg PO DAILY #30 tab Metoprolol [Lopressor] 12.5 mg PO BID #60 tablet Home Medications: Albuterol Sulfate [Proair Hfa] 2 puff IH Q4H PRN 03/15/16 [History] Alendronate Sodium [Fosamax] 70 mg PO MO 03/15/16 [History] Budesonide/Formoterol 160/4.5 [Symbicort 160/4.5] 2 puff IH BID 03/15/16 [ History] Cholecalciferol (Vitamin D3) [Vitamin D3] 1,000 unit PO DAILY 03/15/16 [History] FLUoxetine HCl [Prozac] 40 mg PO HS 03/15/16 [History] Ferrous Sulfate [Iron] 325 mg PO DAILY 03/15/16 [History] Furosemide [Lasix] 40 mg PO DAILY 03/15/16 [History] Ipratropium/Albuterol Neb [Duoneb] 3 ml IH QID PRN 03/15/16 [History] Montelukast [Singulair] 10 mg PO DAILY 03/15/16 [History] Omalizumab [XOLAIR (For Outpatient Infusion)] 150 mg IJ QMONTH 03/15/16 [History ] Omeprazole [PriLOSEC] 40 mg PO DAILY 03/15/16 [History] Oxygen 3 - 4 l NS AD 03/15/16 [History] Acetaminophen [Acetaminophen ER] 650 mg PO BID PRN 01/08/18 [History] EPINEPHrine [Epipen] 0.3 mg IJ ONCE PRN 01/08/18 [History] Multivit-Min/Iron/Folic/Lutein [Centrum Silver Women Tablet] 1 tab PO DAILY [History] predniSONE [PredniSONE] 10 mg PO DAILY #55 tablet 01/10/18 [Rx] Aspirin Enteric Coated [Aspirin EC] 81 mg PO DAILY #30 tablet. 01/26/18 [Rx] Atorvastatin [Lipitor] 40 mg PO HS #30 tablet 01/26/18 [Rx] Losartan Potassium [Cozaar] 50 mg PO DAILY #30 tab 01/26/18 [Rx] Metoprolol [Lopressor] 12.5 mg PO BID #60 tablet 01/26/18 [Rx] Allergies/Adverse Reactions: 3 Allergy/AdvReac Type Severity Reaction Status Date / Time ibandronate sodium Allergy Hives Verified 01/23/18 10:28 [From [facility]] latex Allergy Hives Verified 01/23/18 10:28 Penicillins Allergy Anaphylaxis Verified 01/23/18 10:28 Sulfa (Sulfonamide Allergy Anaphylaxis Verified 01/23/18 10:28 Antibiotics) Tetanus Vaccines and Toxoid Allergy Hives Verified 01/23/18 10:28 [Tetanus Vaccines & Toxoid] tiotropium Allergy Hives Verified 01/23/18 10:28 [[facility]] codeine AdvReac Confusion Verified 01/23/18 10:28 estradiol AdvReac unknown Verified 01/23/18 10:28 per patient morphine AdvReac Confusion Verified 01/23/18 10:28 Certification: Further, I certify that my clinical findings support that this patient is homebound (i.e. absences from home require considerable and taxing effort and are for medical reasons or christianity services or infrequently or short duration when for other reasons) because: Homebound Reason: Patient requires assistance of a person or device to safely leave home (Patient being discharged on hospice / DNR comfort care), Severity of cardiac or pulmonary status limits activity tolerance Attestation: My signature below is to certify that this patient is under my care and that I, or nurse practitioner, or a physician's histology assistant working with me, has a face-to -face encounter with this patient.
--- NOTE | 2018-01-26 08:40 | Palliative Progress Note ---
Date of Encounter: 01/26/18 Time of Encounter: 08:20 - Assessment and plan (1) Chest pain due to myocardial ischemia Current Visit: Yes Status: Acute Assessment and plan: Patient denies pain during assessment. Qualifiers: Ischemic chest pain type: unspecified angina pectoris type Qualified Code(s ): I25.9 - Chronic ischemic heart disease, unspecified (2) Chronic respiratory failure Current Visit: Yes Status: Chronic Assessment and plan: Patient's oxygen saturation 97% on room air. No dyspnea noted. Qualifiers: Respiratory failure complication: hypoxia Qualified Code(s): J96.11 - Chronic respiratory failure with hypoxia (3) Encephalopathy acute Current Visit: Yes Status: Resolved Assessment and plan: Resolved; alert and oriented during assessment. (4) NSTEMI (non-ST elevated myocardial infarction) Current Visit: Yes Status: Acute (5) COPD (chronic obstructive pulmonary disease) Current Visit: Yes Status: Chronic Qualifiers: COPD type: unspecified COPD Qualified Code(s): J44.9 - Chronic obstructive pulmonary disease, unspecified (6) Elevated troponin Current Visit: Yes Status: Acute (7) Goals of care, counseling/discussion Current Visit: Yes Status: Acute Assessment and plan: Patient reported plans to go home with [facility] today. Ordered Prescriptions for Lorazepam and Oxycodone SL PRN. Medical equipment already in place at home via [facility]. Discharge order in place. Awaiting [facility] nurses arrival for discharge paperwork to be completed. Nohelia Stein contacted by Nicho Lui APRN to update with plan of care. - Time Spent With Patient Total time spent is greater than 50% in coordination of care (as documented) at patient's floor/unit and/or counseling patient: less than 15 minutes - Subjective Interval history: Patient resting quietly in bed at this time; no family present at bedside. Patient alert and oriented times 3 during assessment. Patient denies pain and anxiety during assessment. Patient reports plan to go home today with hospice care. Patient has one dose of Oxycodone in the last 24 hours and no doses of Ativan in the last 24 hours. - Constitutional Vitals: Abnormal lab results WBC 12.7 K/mcL (4.3-11.1) H 01/24/18 04:10 RDW 14.9 % (11.5-14.5) H 01/24/18 04:10 APTT 18.4 Seconds (26.0-36.0) L 01/23/18 10:54 Sodium 134 mEq/L (136-145) L 01/24/18 04:10 Potassium 3.0 mEq/L (3.5-5.1) L 01/24/18 04:10 Chloride 90 mEq/L (98-107) L 01/24/18 04:10 Carbon Dioxide 32 mEq/L (23-29) H 01/24/18 04:10 BUN 25 mg/dL (8-23) H 01/24/18 04:10 Est GFR (Non-Af Amer) 55 (> 60) L 01/24/18 04:10 Glucose 132 mg/dL (70-105) H 01/24/18 04:10 Troponin I 0.04 ng/mL (< 0.04) H* 01/24/18 04:10 Cholesterol 237 mg/dL (< 200) H 01/24/18 04:10 HDL Cholesterol 113 mg/dL (40-59) H 01/24/18 04:10 Urine Clarity Cloudy (Clear) A 01/23/18 10:53 Ur Squamous Epith Cells Many per lpf (None-Few) H 01/23/18 10:53 General appearance: Present: cooperative, no acute distress - Head Head exam: Present: atraumatic, normal inspection - Eye Eye exam: Present: normal appearance. Absent: periorbital swelling, periorbital tenderness - ENT ENT exam: Present: mucous membranes moist, normal external ear exam - Neck Neck exam: Present: full ROM, normal inspection - Respiratory Respiratory exam: Present: CTAB. Absent: accessory muscle use, respiratory distress, wheezes - Cardiovascular Cardiovascular exam: Present: RRR, +S1, +S2 - GI/Abdominal GI/Abdominal exam: Present: normal bowel sounds, soft. Absent: tenderness - Rectal Rectal exam: Present: deferred - Extremities Exam Extremities exam: Present: full ROM, normal inspection. Absent: pedal edema - Neurological Exam Neurological exam: Present: alert, oriented X3. Absent: altered - Psychiatric Psychiatric exam: Present: normal affect, normal mood. Absent: agitated, anxious - Skin Skin exam: Present: dry, intact Palliative Quality Palliative Quality: Screen for Code Status: Yes, Screen for Goals of Care: Yes, Screen for Pain: Yes, If Pain Regimen Started, Initiate Bowel Regimen: Yes, Screen for Nausea/Vomitting: Yes Code Status: 01/23/18 12:51 Resuscitation Status: Active [RES] Routine Comment: Resuscitation Status: Full Code 01/24/18 14:05 DNR [Resuscitation Status: Active] [RES] Routine Comment: State form completed. Resuscitation Status: DNR-Comfort Care - Labs CBC & Chem 7: 01/24/18 04:10 01/24/18 04:10 - ABG Interpretation ABG results: PT/INR, D-dimer PT 9.9 Seconds (9.4-12.1) 01/23/18 10:54 Consult Discharge Plan - Plan Instructions: Myocardial Infarction (DC), Chronic Obstructive Pulmonary Disease (DC) Referrals: Gualberto Coto MD [Primary Care Provider] - (in 1 week) Prescriptions: LORazepam Oral Conc [Ativan Oral Conc] 0.5 mg SL Q4HR PRN 4 Days #10 mls PRN Reason: agitation/anxiety Aspirin Enteric Coated [Aspirin EC] 81 mg PO DAILY #30 tablet. Atorvastatin [Lipitor] 40 mg PO HS #30 tablet Losartan Potassium [Cozaar] 50 mg PO DAILY #30 tab Metoprolol [Lopressor] 12.5 mg PO BID #60 tablet OXYCODONE Oral CONC [Oxycodone Oral Conc] 5 mg PO Q3H PRN 4 Days #30 ml PRN Reason: Pain/Dyspnea
[2018-01-26] MEDS: Cholecalciferol (D-3) 1,000 UNIT TABLET PO SCH (09:27)
[2018-01-26] MEDS: Aspirin Enteric Coated 81 MG Tablet PO SCH (09:27)
[2018-01-26] MEDS: Multivit/Ca/Min/Fe/FA 1 TAB TABLET PO SCH (09:27)
== END 2018-01-26 12:02 | disposition hospice, home (50) ==
LOC: EMEROO 10:10 → 2ANU 10:10 → SUATTDRO 12:51 → 2ANU 14:00
PROVIDERS: ADMIT Internal Medicine; ATTEND Internal Medicine

== ENCOUNTER 2020-04-27 08:42 | Observation (INO) ==
[2020-04-27] MEDS ORDERED: Acetaminophen 325 MG TABLET PO ONE (08:47)
[2020-04-27 09:20] LABS: Basophils # 0.1 K/mcL (0.0-0.2); Basophils % 0.7 %; Eosinophils # 0.1 K/mcL (0.0-0.6); Eosinophils % 0.5 %; Hematocrit 38.3 % (35.3-44.9); Hemoglobin 12.2 g/dL (11.5-15.4); Immature Granulocytes % 1.3 % (0-4); Lymphocytes # 2.3 K/mcL (0.6-4.6); Lymphocytes % 18.5 %; Mean Corpuscular HGB Conc 31.9 g/dL (31.6-35.5); Mean Corpuscular Hemoglobin 30.6 pg (28.0-33.3); Mean Platelet Volume 10.1 fL (9.4-12.4); Monocytes % 8.1 %; Neutrophils # 8.6 K/mcL (1.6-8.9); Platelet Count 347 K/mcL (140-400); Red Blood Count 3.99 M/mcL (3.82-4.97); Red Cell Distribution Width 14.3 % (11.5-14.5); Segmented Neutrophils % 70.9 %; White Blood Count 12.2 K/mcL (4.3-11.1)
[2020-04-27 09:34] LABS: BUN/Creatinine Ratio 20 (6-26); Blood Urea Nitrogen 18 mg/dL (8-23); Calcium 9.2 mg/dL (8.6-10.3); Carbon Dioxide 27 mEq/L (23-29); Chloride 101 mEq/L (98-107); Glucose 100 mg/dL (70-105); Osmolality,Calculated 286 (280-300); Potassium 3.8 mEq/L (3.5-5.1); Sodium 137 mEq/L (136-145); eGFR For African Americans > 60 (> 60); eGFR For Non-African Americans 60 (> 60)
[2020-04-27] MEDS ORDERED: *HR* Promethazine 25 MG/ML VIAL IVP PRN (10:03)
[2020-04-27] MEDS: Ketorolac 15 MG/ML VIAL IVP PRN ×2 (14:08→20:04)
[2020-04-27] MEDS: *HR* OxyCODONE Immed Rel 5 MG TABLET PO PRN (17:14)
[2020-04-28] MEDS ORDERED: *HR* Enoxaparin 40 MG/0.4 ML SYRINGE SQ SCH (06:00)
[2020-04-28] MEDS: *HR* OxyCODONE Immed Rel 5 MG TABLET PO PRN (08:11)
[2020-04-28 08:18] LABS: Basophils # 0.1 K/mcL (0.0-0.2); Basophils % 0.5 %; Eosinophils # 0.1 K/mcL (0.0-0.6); Eosinophils % 0.5 %; Hematocrit 35.1 % (35.3-44.9); Hemoglobin 11.6 g/dL (11.5-15.4); Immature Granulocytes % 0.3 % (0-4); Lymphocytes # 2.2 K/mcL (0.6-4.6); Lymphocytes % 16.8 %; Mean Corpuscular Hemoglobin 31.1 pg (28.0-33.3); Mean Corpuscular Volume 94.1 fL (83.0-100.0); Mean Platelet Volume 10.2 fL (9.4-12.4); Monocytes # 1.3 K/mcL (0.0-1.3); Monocytes % 9.8 %; Neutrophils # 9.5 K/mcL (1.6-8.9); Platelet Count 275 K/mcL (140-400); Red Blood Count 3.73 M/mcL (3.82-4.97); Red Cell Distribution Width 14.5 % (11.5-14.5); Segmented Neutrophils % 72.1 %; White Blood Count 13.2 K/mcL (4.3-11.1)
[2020-04-28] MEDS: Ketorolac 15 MG/ML VIAL IVP PRN (14:33)
[2020-04-28] MEDS: Budesonide/Formoterol 160/4.5 1 PUFF INH IH SCH (19:58)
[2020-04-28] MEDS: Acyclovir 200 MG CAPSULE PO SCH (20:22)
[2020-04-28] MEDS ORDERED: FLUoxetine 20 MG CAPSULE PO SCH (21:00)
[2020-04-29] MEDS ORDERED: *HR* Enoxaparin 30 MG/0.3 ML SYRINGE SQ SCH (06:00)
[2020-04-29] MEDS: Acyclovir 200 MG CAPSULE PO SCH (07:25)
[2020-04-29] MEDS: Budesonide/Formoterol 160/4.5 1 PUFF INH IH SCH (07:51)
[2020-04-29 08:11] LABS: Basophils # 0.1 K/mcL (0.0-0.2); Basophils % 0.8 %; Eosinophils # 0.3 K/mcL (0.0-0.6); Eosinophils % 2.9 %; Hematocrit 36.4 % (35.3-44.9); Hemoglobin 11.6 g/dL (11.5-15.4); Immature Granulocytes % 0.4 % (0-4); Lymphocytes # 2.2 K/mcL (0.6-4.6); Lymphocytes % 20.8 %; Mean Corpuscular HGB Conc 31.9 g/dL (31.6-35.5); Mean Corpuscular Hemoglobin 31.1 pg (28.0-33.3); Mean Corpuscular Volume 97.6 fL (83.0-100.0); Monocytes # 1.4 K/mcL (0.0-1.3); Monocytes % 13.8 %; Neutrophils # 6.4 K/mcL (1.6-8.9); Platelet Count 225 K/mcL (140-400); Red Blood Count 3.73 M/mcL (3.82-4.97); Red Cell Distribution Width 14.8 % (11.5-14.5); Segmented Neutrophils % 61.3 %; White Blood Count 10.4 K/mcL (4.3-11.1)
[2020-04-29 08:34] LABS: BUN/Creatinine Ratio 32 (6-26); Blood Urea Nitrogen 26 mg/dL (8-23); Calcium 8.9 mg/dL (8.6-10.3); Carbon Dioxide 26 mEq/L (23-29); Chloride 98 mEq/L (98-107); Glucose 95 mg/dL (70-105); Osmolality,Calculated 281 (280-300); Potassium 3.6 mEq/L (3.5-5.1); Sodium 133 mEq/L (136-145); eGFR For African Americans > 60 (> 60); eGFR For Non-African Americans > 60 (> 60)
[2020-04-29] MEDS ORDERED: Cholecalciferol (D-3) 1,000 UNIT (25MCG) TABLET PO SCH (09:00)
[2020-04-29] MEDS ORDERED: Furosemide 40 MG TABLET PO SCH (09:00)
[2020-04-29] MEDS ORDERED: Aspirin Enteric Coated 81 MG Tablet PO SCH (09:00)
[2020-04-29 10:49] VITALS: BP 112/58
[2020-04-29] MEDS: *HR* OxyCODONE Immed Rel 5 MG TABLET PO PRN (12:58)
== END 2020-04-29 13:06 ==
LOC: EMEROOARM 08:42 → 3ANU 08:42 → SUATTDRO 10:29 → 3ANU 11:24
PROVIDERS: ADMIT Internal Medicine; ATTEND Family Medicine